=== PATIENT | female | born 1995 | race Caucasian/White ===

== ENCOUNTER 2016-04-15 15:16 | Emergency (ER) | payer OTHER, SELFPAY ==
--- NOTE | 2016-04-15 16:29 | EDDOCDS ---
Physician Documentation [facility] Name: Ofelia Roberts Age: 21 yrs Sex: Female : 1995 Arrival Date: 04/15/2016 Time: 15:16 Bed 1 Private MD: No Pcp Disposition: 04/15 16:00 Critical Care: Critical care not applicable. pc Disposition: 04/15/16 16:01 Discharged to Home/Self Care. Impression: Poisoning by heroin, accidental (unintentional), Opioid abuse. - Condition is Stable. - Discharge Instructions: Narcotic Overdose, Opioid Use Disorder. - Medication Reconciliation, Local Pharmacy Hours form. - Follow up: Addiction Services; When: Call to arrange an appointment; Reason: To establish care. - Problem is new. - Symptoms are resolved. HPI: 15:38 This 21 yrs old Female presents to ER via Ambulance with complaints of pc Overdose. 15:38 The patient presents to the emergency department with a history of substance abuse. 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 She was given Narcan IN and IV with complete reversal and she presents awake and alert. She denies any SI or coingestion. [facility] are in attendance. She denies any complaints currently and is agreeable to speak with PFS staff. The patient has experienced similar episodes in the past, multiple times. Historical: - Allergies: No known drug Allergies; - Home Meds: 1. none - PMHx: Substance Abuse; Bipolar disorder; - PSHx: none; - The history from nurses notes was reviewed: and I agree with what is documented. - Social history: Smoking status: Patient states was never smoker of tobacco. No barriers to communication noted, The patient speaks fluent Occitan, Speaks appropriately for age. - : The pt / caregiver states he / she is not on anticoagulants. Home medication list is obtained from the patient. - Hospitalizations: : No recent hospitalization is reported. - Exposure Risk Screening:: None identified. - Immunization history:: All immunizations up-to-date. - Family history: Not pertinent. - Social history:: the patient smokes cigarettes the patient drinks alcohol, the patient uses illicit drugs, including heroin, opiates. ROS: 15:38 All systems are negative except as listed. The psychiatric and neurological components pc are also addressed in the HPI. Exam: 15:38 General Appearance: alert, no acute distress. pc 15:38 ENT: ear, nose and throat normal, pharynx normal. 15:38 Eyes: pupils equal, round and reactive to light, extraocular motions intact. 15:38 Neck: The exam reveals no acute abnormalities. ROM is normal and painless. No nuchal rigidity is noted.. 15:38 Respiratory: breathing is even and unlabored, breath sounds are normal. 15:38 Cardiovascular: regular pulse rate, regular heart rhythm, normal heart sounds, equal and full pulses bilaterally. 15:38 Abdomen: soft, non-tender, no organomegaly, normal bowel sounds. 15:38 Skin: skin color is normal, warm, dry. 15:38 Extremities: track hinojosa on forearms. 15:38 Neuro: alert, oriented to person, place and time, cranial nerves normal as tested, no motor deficits, no sensory deficits. 15:38 Psych: mood is normal. Vital Signs: 15:30 BP 128 / 76 (auto/); jo3 15:30 Pulse 87 MON; Pulse Ox 96% ; jo3 15:31 BP 127 / 79; Pulse 88; Resp 16; Temp 97.1(O); Pulse Ox 96% on R/A; Weight 72.26 kg / dem1 159.31 lbs (M); Height 5 ft. 6 in. (167.64 cm) (R); Pain 4/10; 15:45 BP 128 / 69 (auto/); jo3 15:45 Pulse 84 MON; Pulse Ox 96% ; jo3 16:00 BP 114 / 65 (auto/); jo3 16:00 Pulse 66 MON; Resp 16; Temp 98.1(O); Pulse Ox 97% ; jo3 15:31 Body Mass Index 25.71 (72.26 kg, 167.64 cm) dem1 MDM: 15:38 Differential diagnosis: Substance Abuse heroin poisoning with reversal. Plan: observe, pc PFS eval. 15:53 PSA Outpatient Referrals was scanned into [employer] and attached to record. jfb 15:55 Financial registration complete. ks16 15:59 [facility] Payment Agreement was scanned into [employer] and attached to record. ks16 16:00 The patient has been medically cleared for psychiatric evaluation, admission and/or pc transfer. [employer] Safe Act reporting: Reporting to the [place] Safe Act was not completed because the patient did not display any suicidal or homicidal ideation and was not considered a risk to self or others. Data reviewed: old medical records, vital signs, nurses notes. Test interpretation: none. The patient has been re-examined and re-evaluated. The clinical presentation did not require any ED treatment or interventions. 16:00 Other consultation: The ED printed circuit board reworker was notified and will evaluate the patient. pc 16:00 Disposition: The historical points, examination findings, and any diagnostic results pc supporting the provided diagnosis, were discussed with the patient or legal guardian. The need for outpatient follow up with the provider listed on their discharge instructions was discussed. They were encouraged to return to [facility], or the nearest ED, if symptoms worsen/persist, or for any other questions/concerns. Signatures: Pedro Buckner MD MD pc Helmerci, Jennifer, RN RN Brie Solorzano PSA PSA jfb Sorenson, Kimberly, Reg Reg ks16 The chart was reviewed and I authenticate all verbal orders and agree with the evaluation and treatment provided.Corrections: (The following items were deleted from the chart) 16:00 16:00 Disposition: After a detailed explanation of all findings and the diagnosis, and pc the lack of medical necessity for an admission to hospital, the request for admission was again made. A social service director will arrange a assisted admission. pc Attachments: 15:59 [facility] Payment Agreement ks16 MTDD
--- NOTE | 2016-04-15 16:29 | EDDOCDS ---
Nurse's Notes [facility] Name: Ofelia Roberts Age: 21 yrs Sex: Female : 1995 Arrival Date: 04/15/2016 Time: 15:16 Bed 1 Private MD: No Pcp Diagnosis: Poisoning by heroin, accidental (unintentional);Opioid abuse Presentation: 04/15 15:25 Presenting complaint: EMS states: [facility] responded to call for unresponsive pt. Pt jo3 was found unresponsive and apneic with a pulse. 2mg Narcan administered IN and 2mg administered additionally by EMS after IV established. Pt now awake and alert. Adult Sepsis Screening: The patient does not have new or worsening altered mentation. Patient's respiratory rate is less than 22. Systolic blood pressure is greater than 100. Patient has a qSOFA score of 0- Negative Sepsis Screen. Suicide/Homicide risk assessment- The patient reports that he/she has a recent or current history of substance abuse. Status: Patient is not a funeral service licensee or dependent. Transition of care: patient was not received from another setting of care. 15:25 Acuity: ZULMA Level 3 jo3 15:25 Method Of Arrival: Ambulance jo3 Triage Assessment: 15:27 General: Appears in no apparent distress, Behavior is appropriate for age, cooperative, jo3 drowsy. Pain: Location: [facility] Pain currently is 3 out of 10 on a pain scale. HIV screening NA for this visit Offered previously. The patient is triaged at the bedside. See Assessment in Nurses Notes section of ED record. Neurological: Level of Consciousness is awake, alert. Cardiovascular: Rhythm is sinus rhythm No ectopy. Chest pain is denied. Respiratory: No deficits noted. Airway is patent Respiratory effort is even, unlabored. Derm: Skin Skin is clammy, Skin is pink, Skin temperature is cool. Historical: - Allergies: No known drug Allergies; - Home Meds: 1. none - PMHx: Substance Abuse; Bipolar disorder; - PSHx: none; - The history from nurses notes was reviewed: and I agree with what is documented. - Social history: Smoking status: Patient states was never smoker of tobacco. No barriers to communication noted, The patient speaks fluent Macedonian, Speaks appropriately for age. - : The pt / caregiver states he / she is not on anticoagulants. Home medication list is obtained from the patient. - Hospitalizations: : No recent hospitalization is reported. - Exposure Risk Screening:: None identified. - Immunization history:: All immunizations up-to-date. - Family history: Not pertinent. - Social history:: the patient smokes cigarettes the patient drinks alcohol, the patient uses illicit drugs, including heroin, opiates. Screenin:00 Screening information is obtained from the patient. Fall risk: No risks identified. jo3 Assistance ADL's: requires no assistance with activities of daily living. Abuse/DV Screen: The patient / caregiver reports he/she is: not in a situation that causes fear, pain or injury. Nutritional screening: No deficits noted. Advance Directives: There is no active DNR order. home support is adequate. Assessment: 15:35 Reassessment: see triage assessment . jo3 16:24 General: Appears in no apparent distress, comfortable, Behavior is appropriate for age, jo3 cooperative. Neurological: No deficits noted. Level of Consciousness is awake, alert, Oriented to person, place, time. Cardiovascular: Rhythm is sinus rhythm No ectopy. Respiratory: Airway is patent Respiratory effort is even, unlabored. Derm: Skin is pink, warm & dry. Social Work Consult: 15:55 Social Work Note: PT states she has memory up to overdosing and then the next memory jfb was being here in the ED. PT denies SI/HI or hallucinations. PT states that last summer she was in treatment at [facility] Addictions and then was sent to [facility] rehab. She was able to stay clean until about a week ago when she started "shooting heroin again". PT is requesting to go home and accepted referral information for outpatient care. Vital Signs: 15:30 BP 128 / 76 (auto/); jo3 15:30 Pulse 87 MON; Pulse Ox 96% ; jo3 15:31 BP 127 / 79; Pulse 88; Resp 16; Temp 97.1(O); Pulse Ox 96% on R/A; Weight 72.26 kg (M); dem1 Height 5 ft. 6 in. (167.64 cm) (R); Pain 4/10; 15:45 BP 128 / 69 (auto/); jo3 15:45 Pulse 84 MON; Pulse Ox 96% ; jo3 16:00 BP 114 / 65 (auto/); jo3 16:00 Pulse 66 MON; Resp 16; Temp 98.1(O); Pulse Ox 97% ; jo3 15:31 Body Mass Index 25.71 (72.26 kg, 167.64 cm) dem1 Vitals: 15:31 Log In Time N/A - ambulance arrival. dem1 ED Course: 15:17 Patient visited by Dot Au PCA. rs6 15:17 No Pcp is Private Physician. rs6 15:17 Patient moved to Waiting rs6 15:18 Patient moved to 1 rs6 15:21 Pedro Buckner MD is Attending Physician. pc 15:26 Triage Initiated jo3 15:31 Patient visited by Hina Jose,MANDO. jo3 15:31 Patient visited by Mikki Cruz. dem1 15:35 Maintain field IV. Dressing intact. Good blood return noted. Site clean & dry. Gauge & jo3 site: 18g in LAC. 15:38 Patient visited by Pedro Buckner MD. pc 15:53 PSA Outpatient Referrals was scanned into [employer] and attached to record. jfb 15:59 [facility] Payment Agreement was scanned into [employer] and attached to record. ks16 16:00 The patient / caregiver is instructed regarding the plan of care and ED course. jo3 16:01 Addiction Services is Referral Physician. pc 16:26 Discontinued IV lock intact, bleeding controlled, pressure dressing applied, No jo3 redness/swelling at site. No procedures done that require assistance. Order Results: There are currently no results for this order. Outcome: 16:01 Discharge ordered by Provider. pc 16:27 Discharge Assessment: Patient awake, alert and oriented x 3. No cognitive and/or jo3 functional deficits noted. Patient verbalized understanding of disposition instructions. patient administered narcotics - no. The following High Risk Discharge criteria are identified: Yes, Substance abuse. PFS involved in DC. Condition: stable Condition: improved. Discharge instructions given to patient, Instructed on discharge instructions, follow up and referral plans. Demonstrated understanding of instructions, Pt was receptive of discharge instructions/ teaching. No special radiology studies were completed. Property sent home with patient. 16:28 Patient left the ED. jo3 Signatures: Pedro Buckner MD MD Hina Jose,RN RN jo3 Brie Yepez, PSA PSA jfb Mikki Cruz dem1 Dot Au PCA INDUSTRIAL EDUCATION TEACHER rs6 Marisol, Mignon, Reg Reg ks16 MTDD
--- NOTE | 2016-04-17 17:28 | EDDOCDS ---
Physician Documentation [facility] Name: Ofelia Roberts Age: 21 yrs Sex: Female : 1995 Arrival Date: 04/15/2016 Time: 15:16 Bed 1 Private MD: No Pcp Disposition: 04/15 16:00 Critical Care: Critical care not applicable. pc Disposition: 04/15/16 16:01 Discharged to Home/Self Care. Impression: Poisoning by heroin, accidental (unintentional), Opioid abuse. - Condition is Stable. - Discharge Instructions: Narcotic Overdose, Opioid Use Disorder. - Medication Reconciliation, Local Pharmacy Hours form. - Follow up: Addiction Services; When: Call to arrange an appointment; Reason: To establish care. - Problem is new. - Symptoms are resolved. HPI: 15:38 This 21 yrs old Female presents to ER via Ambulance with complaints of pc Overdose. 15:38 The patient presents to the emergency department with a history of substance abuse. 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 She was given Narcan IN and IV with complete reversal and she presents awake and alert. She denies any SI or coingestion. [facility]PD are in attendance. She denies any complaints currently and is agreeable to speak with PFS staff. The patient has experienced similar episodes in the past, multiple times. Historical: - Allergies: No known drug Allergies; - Home Meds: 1. none - PMHx: Substance Abuse; Bipolar disorder; - PSHx: none; - The history from nurses notes was reviewed: and I agree with what is documented. - Social history: Smoking status: Patient states was never smoker of tobacco. No barriers to communication noted, The patient speaks fluent Occitan, Speaks appropriately for age. - : The pt / caregiver states he / she is not on anticoagulants. Home medication list is obtained from the patient. - Hospitalizations: : No recent hospitalization is reported. - Exposure Risk Screening:: None identified. - Immunization history:: All immunizations up-to-date. - Family history: Not pertinent. - Social history:: the patient smokes cigarettes the patient drinks alcohol, the patient uses illicit drugs, including heroin, opiates. ROS: 15:38 All systems are negative except as listed. The psychiatric and neurological components pc are also addressed in the HPI. Exam: 15:38 General Appearance: alert, no acute distress. pc 15:38 ENT: ear, nose and throat normal, pharynx normal. 15:38 Eyes: pupils equal, round and reactive to light, extraocular motions intact. 15:38 Neck: The exam reveals no acute abnormalities. ROM is normal and painless. No nuchal rigidity is noted.. 15:38 Respiratory: breathing is even and unlabored, breath sounds are normal. 15:38 Cardiovascular: regular pulse rate, regular heart rhythm, normal heart sounds, equal and full pulses bilaterally. 15:38 Abdomen: soft, non-tender, no organomegaly, normal bowel sounds. 15:38 Skin: skin color is normal, warm, dry. 15:38 Extremities: track hinojosa on forearms. 15:38 Neuro: alert, oriented to person, place and time, cranial nerves normal as tested, no motor deficits, no sensory deficits. 15:38 Psych: mood is normal. Vital Signs: 15:30 BP 128 / 76 (auto/); jo3 15:30 Pulse 87 MON; Pulse Ox 96% ; jo3 15:31 BP 127 / 79; Pulse 88; Resp 16; Temp 97.1(O); Pulse Ox 96% on R/A; Weight 72.26 kg / dem1 159.31 lbs (M); Height 5 ft. 6 in. (167.64 cm) (R); Pain 4/10; 15:45 BP 128 / 69 (auto/); jo3 15:45 Pulse 84 MON; Pulse Ox 96% ; jo3 16:00 BP 114 / 65 (auto/); jo3 16:00 Pulse 66 MON; Resp 16; Temp 98.1(O); Pulse Ox 97% ; jo3 15:31 Body Mass Index 25.71 (72.26 kg, 167.64 cm) dem1 MDM: 15:38 Differential diagnosis: Substance Abuse heroin poisoning with reversal. Plan: observe, pc PFS eval. 15:53 PSA Outpatient Referrals was scanned into [employer] and attached to record. jfb 15:55 Financial registration complete. ks16 15:59 [facility] Payment Agreement was scanned into [employer] and attached to record. ks16 16:00 The patient has been medically cleared for psychiatric evaluation, admission and/or pc transfer. [employer] Safe Act reporting: Reporting to the [place] Safe Act was not completed because the patient did not display any suicidal or homicidal ideation and was not considered a risk to self or others. Data reviewed: old medical records, vital signs, nurses notes. Test interpretation: none. The patient has been re-examined and re-evaluated. The clinical presentation did not require any ED treatment or interventions. 16:00 Other consultation: The ED advertising layout worker was notified and will evaluate the patient. pc 16:00 Disposition: The historical points, examination findings, and any diagnostic results pc supporting the provided diagnosis, were discussed with the patient or legal guardian. The need for outpatient follow up with the provider listed on their discharge instructions was discussed. They were encouraged to return to [facility], or the nearest ED, if symptoms worsen/persist, or for any other questions/concerns. Signatures: Pedro Buckner MD MD pc Helmerci, Jennifer, RN RN Brie Solorzano PSA PSA jfb Sorenson, Kimberly, Reg Reg ks16 The chart was reviewed and I authenticate all verbal orders and agree with the evaluation and treatment provided.Corrections: (The following items were deleted from the chart) 16:00 16:00 Disposition: After a detailed explanation of all findings and the diagnosis, and pc the lack of medical necessity for an admission to hospital, the request for admission was again made. A perinatal social worker will arrange a fdc admission. pc Attachments: 15:59 [facility] Payment Agreement ks16 Chart Complete MTDD
--- NOTE | 2016-04-17 17:28 | EDDOCDS ---
Physician Documentation [facility] Name: Ofelia Roberts Age: 21 yrs Sex: Female : 1995 Arrival Date: 04/15/2016 Time: 15:16 Bed 1 Private MD: No Pcp Disposition: 04/15 16:00 Critical Care: Critical care not applicable. pc Disposition: 04/15/16 16:01 Discharged to Home/Self Care. Impression: Poisoning by heroin, accidental (unintentional), Opioid abuse. - Condition is Stable. - Discharge Instructions: Narcotic Overdose, Opioid Use Disorder. - Medication Reconciliation, Local Pharmacy Hours form. - Follow up: Addiction Services; When: Call to arrange an appointment; Reason: To establish care. - Problem is new. - Symptoms are resolved. HPI: 15:38 This 21 yrs old Female presents to ER via Ambulance with complaints of pc Overdose. 15:38 The patient presents to the emergency department with a history of substance abuse. 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 She was given Narcan IN and IV with complete reversal and she presents awake and alert. She denies any SI or coingestion. [facility]PD are in attendance. She denies any complaints currently and is agreeable to speak with PFS staff. The patient has experienced similar episodes in the past, multiple times. Historical: - Allergies: No known drug Allergies; - Home Meds: 1. none - PMHx: Substance Abuse; Bipolar disorder; - PSHx: none; - The history from nurses notes was reviewed: and I agree with what is documented. - Social history: Smoking status: Patient states was never smoker of tobacco. No barriers to communication noted, The patient speaks fluent Swedish, Speaks appropriately for age. - : The pt / caregiver states he / she is not on anticoagulants. Home medication list is obtained from the patient. - Hospitalizations: : No recent hospitalization is reported. - Exposure Risk Screening:: None identified. - Immunization history:: All immunizations up-to-date. - Family history: Not pertinent. - Social history:: the patient smokes cigarettes the patient drinks alcohol, the patient uses illicit drugs, including heroin, opiates. ROS: 15:38 All systems are negative except as listed. The psychiatric and neurological components pc are also addressed in the HPI. Exam: 15:38 General Appearance: alert, no acute distress. pc 15:38 ENT: ear, nose and throat normal, pharynx normal. 15:38 Eyes: pupils equal, round and reactive to light, extraocular motions intact. 15:38 Neck: The exam reveals no acute abnormalities. ROM is normal and painless. No nuchal rigidity is noted.. 15:38 Respiratory: breathing is even and unlabored, breath sounds are normal. 15:38 Cardiovascular: regular pulse rate, regular heart rhythm, normal heart sounds, equal and full pulses bilaterally. 15:38 Abdomen: soft, non-tender, no organomegaly, normal bowel sounds. 15:38 Skin: skin color is normal, warm, dry. 15:38 Extremities: track hinojosa on forearms. 15:38 Neuro: alert, oriented to person, place and time, cranial nerves normal as tested, no motor deficits, no sensory deficits. 15:38 Psych: mood is normal. Vital Signs: 15:30 BP 128 / 76 (auto/); jo3 15:30 Pulse 87 MON; Pulse Ox 96% ; jo3 15:31 BP 127 / 79; Pulse 88; Resp 16; Temp 97.1(O); Pulse Ox 96% on R/A; Weight 72.26 kg / dem1 159.31 lbs (M); Height 5 ft. 6 in. (167.64 cm) (R); Pain 4/10; 15:45 BP 128 / 69 (auto/); jo3 15:45 Pulse 84 MON; Pulse Ox 96% ; jo3 16:00 BP 114 / 65 (auto/); jo3 16:00 Pulse 66 MON; Resp 16; Temp 98.1(O); Pulse Ox 97% ; jo3 15:31 Body Mass Index 25.71 (72.26 kg, 167.64 cm) dem1 MDM: 15:38 Differential diagnosis: Substance Abuse heroin poisoning with reversal. Plan: observe, pc PFS eval. 15:53 PSA Outpatient Referrals was scanned into [employer] and attached to record. jfb 15:55 Financial registration complete. ks16 15:59 [facility] Payment Agreement was scanned into [employer] and attached to record. ks16 16:00 The patient has been medically cleared for psychiatric evaluation, admission and/or pc transfer. [employer] Safe Act reporting: Reporting to the [place] Safe Act was not completed because the patient did not display any suicidal or homicidal ideation and was not considered a risk to self or others. Data reviewed: old medical records, vital signs, nurses notes. Test interpretation: none. The patient has been re-examined and re-evaluated. The clinical presentation did not require any ED treatment or interventions. 16:00 Other consultation: The ED groundskeeping maintenance worker was notified and will evaluate the patient. pc 16:00 Disposition: The historical points, examination findings, and any diagnostic results pc supporting the provided diagnosis, were discussed with the patient or legal guardian. The need for outpatient follow up with the provider listed on their discharge instructions was discussed. They were encouraged to return to [facility], or the nearest ED, if symptoms worsen/persist, or for any other questions/concerns. Signatures: Pedro Buckner MD MD pc Helmerci, Jennifer, RN RN Brie Solorzano PSA PSA jfb Sorenson, Kimberly, Reg Reg ks16 The chart was reviewed and I authenticate all verbal orders and agree with the evaluation and treatment provided.Corrections: (The following items were deleted from the chart) 16:00 16:00 Disposition: After a detailed explanation of all findings and the diagnosis, and pc the lack of medical necessity for an admission to hospital, the request for admission was again made. A social science analyst will arrange a residential admission. pc Attachments: 15:59 [facility] Payment Agreement [email or web address] Chart Complete MTDD
--- NOTE | 2016-04-17 17:28 | EDDOCDS ---
Nurse's Notes [facility] Name: Ofelia Roberts Age: 21 yrs Sex: Female : 1995 Arrival Date: 04/15/2016 Time: 15:16 Bed 1 Private MD: No Pcp Diagnosis: Poisoning by heroin, accidental (unintentional);Opioid abuse Presentation: 04/15 15:25 Presenting complaint: EMS states: [facility] responded to call for unresponsive pt. Pt jo3 was found unresponsive and apneic with a pulse. 2mg Narcan administered IN and 2mg administered additionally by EMS after IV established. Pt now awake and alert. Adult Sepsis Screening: The patient does not have new or worsening altered mentation. Patient's respiratory rate is less than 22. Systolic blood pressure is greater than 100. Patient has a qSOFA score of 0- Negative Sepsis Screen. Suicide/Homicide risk assessment- The patient reports that he/she has a recent or current history of substance abuse. Status: Patient is not a financial services internship or dependent. Transition of care: patient was not received from another setting of care. 15:25 Acuity: ZULMA Level 3 jo3 15:25 Method Of Arrival: Ambulance jo3 Triage Assessment: 15:27 General: Appears in no apparent distress, Behavior is appropriate for age, cooperative, jo3 drowsy. Pain: Location: [facility] Pain currently is 3 out of 10 on a pain scale. HIV screening NA for this visit Offered previously. The patient is triaged at the bedside. See Assessment in Nurses Notes section of ED record. Neurological: Level of Consciousness is awake, alert. Cardiovascular: Rhythm is sinus rhythm No ectopy. Chest pain is denied. Respiratory: No deficits noted. Airway is patent Respiratory effort is even, unlabored. Derm: Skin Skin is clammy, Skin is pink, Skin temperature is cool. Historical: - Allergies: No known drug Allergies; - Home Meds: 1. none - PMHx: Substance Abuse; Bipolar disorder; - PSHx: none; - The history from nurses notes was reviewed: and I agree with what is documented. - Social history: Smoking status: Patient states was never smoker of tobacco. No barriers to communication noted, The patient speaks fluent Hungarian, Speaks appropriately for age. - : The pt / caregiver states he / she is not on anticoagulants. Home medication list is obtained from the patient. - Hospitalizations: : No recent hospitalization is reported. - Exposure Risk Screening:: None identified. - Immunization history:: All immunizations up-to-date. - Family history: Not pertinent. - Social history:: the patient smokes cigarettes the patient drinks alcohol, the patient uses illicit drugs, including heroin, opiates. Screenin:00 Screening information is obtained from the patient. Fall risk: No risks identified. jo3 Assistance ADL's: requires no assistance with activities of daily living. Abuse/DV Screen: The patient / caregiver reports he/she is: not in a situation that causes fear, pain or injury. Nutritional screening: No deficits noted. Advance Directives: There is no active DNR order. home support is adequate. Assessment: 15:35 Reassessment: see triage assessment . jo3 16:24 General: Appears in no apparent distress, comfortable, Behavior is appropriate for age, jo3 cooperative. Neurological: No deficits noted. Level of Consciousness is awake, alert, Oriented to person, place, time. Cardiovascular: Rhythm is sinus rhythm No ectopy. Respiratory: Airway is patent Respiratory effort is even, unlabored. Derm: Skin is pink, warm & dry. Social Work Consult: 15:55 Social Work Note: PT states she has memory up to overdosing and then the next memory jfb was being here in the ED. PT denies SI/HI or hallucinations. PT states that last summer she was in treatment at [facility] Addictions and then was sent to [facility] rehab. She was able to stay clean until about a week ago when she started "shooting heroin again". PT is requesting to go home and accepted referral information for outpatient care. Vital Signs: 15:30 BP 128 / 76 (auto/); jo3 15:30 Pulse 87 MON; Pulse Ox 96% ; jo3 15:31 BP 127 / 79; Pulse 88; Resp 16; Temp 97.1(O); Pulse Ox 96% on R/A; Weight 72.26 kg (M); dem1 Height 5 ft. 6 in. (167.64 cm) (R); Pain 4/10; 15:45 BP 128 / 69 (auto/); jo3 15:45 Pulse 84 MON; Pulse Ox 96% ; jo3 16:00 BP 114 / 65 (auto/); jo3 16:00 Pulse 66 MON; Resp 16; Temp 98.1(O); Pulse Ox 97% ; jo3 15:31 Body Mass Index 25.71 (72.26 kg, 167.64 cm) dem1 Vitals: 15:31 Log In Time N/A - ambulance arrival. dem1 ED Course: 15:17 Patient visited by Dot Au PCA. rs6 15:17 No Pcp is Private Physician. rs6 15:17 Patient moved to Waiting rs6 15:18 Patient moved to 1 rs6 15:21 Pedro Buckner MD is Attending Physician. pc 15:26 Triage Initiated jo3 15:31 Patient visited by Hina Jose,MANDO. jo3 15:31 Patient visited by Mikki Cruz. dem1 15:35 Maintain field IV. Dressing intact. Good blood return noted. Site clean & dry. Gauge & jo3 site: 18g in LAC. 15:38 Patient visited by Pedro Buckner MD. pc 15:53 PSA Outpatient Referrals was scanned into [employer] and attached to record. jfb 15:59 [facility] Payment Agreement was scanned into [employer] and attached to record. ks16 16:00 The patient / caregiver is instructed regarding the plan of care and ED course. jo3 16:01 Addiction Services is Referral Physician. pc 16:26 Discontinued IV lock intact, bleeding controlled, pressure dressing applied, No jo3 redness/swelling at site. No procedures done that require assistance. Order Results: There are currently no results for this order. Outcome: 16:01 Discharge ordered by Provider. pc 16:27 Discharge Assessment: Patient awake, alert and oriented x 3. No cognitive and/or jo3 functional deficits noted. Patient verbalized understanding of disposition instructions. patient administered narcotics - no. The following High Risk Discharge criteria are identified: Yes, Substance abuse. PFS involved in DC. Condition: stable Condition: improved. Discharge instructions given to patient, Instructed on discharge instructions, follow up and referral plans. Demonstrated understanding of instructions, Pt was receptive of discharge instructions/ teaching. No special radiology studies were completed. Property sent home with patient. 16:28 Patient left the ED. jo3 Signatures: Pedro Buckner MD MD Hina Jose,RN RN jo3 Brie Yepez, PSA PSA jfb Mikki Cruz dem1 Dot Au PCA ACCOUNT SUPPORT MANAGER rs6 Marisol, Mignon, Reg Reg ks16 Chart Complete MTDD
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
--- NOTE | 2016-04-18 22:04 | EDDOCDS ---
Physician Documentation [facility] Name: Ofelia Roberts Age: 21 yrs Sex: Female : 1995 Arrival Date: 04/15/2016 Time: 15:16 Bed 1 Private MD: No Pcp Disposition: 04/15 16:00 Critical Care: Critical care not applicable. pc Disposition: 04/15/16 16:01 Discharged to Home/Self Care. Impression: Poisoning by heroin, accidental (unintentional), Opioid abuse. - Condition is Stable. - Discharge Instructions: Narcotic Overdose, Opioid Use Disorder. - Medication Reconciliation, Local Pharmacy Hours form. - Follow up: Addiction Services; When: Call to arrange an appointment; Reason: To establish care. - Problem is new. - Symptoms are resolved. HPI: 15:38 This 21 yrs old Female presents to ER via Ambulance with complaints of pc Overdose. 15:38 The patient presents to the emergency department with a history of substance abuse. 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 She was given Narcan IN and IV with complete reversal and she presents awake and alert. She denies any SI or coingestion. [facility] are in attendance. She denies any complaints currently and is agreeable to speak with PFS staff. The patient has experienced similar episodes in the past, multiple times. Historical: - Allergies: No known drug Allergies; - Home Meds: 1. none - PMHx: Substance Abuse; Bipolar disorder; - PSHx: none; - The history from nurses notes was reviewed: and I agree with what is documented. - Social history: Smoking status: Patient states was never smoker of tobacco. No barriers to communication noted, The patient speaks fluent Kinyarwanda, Speaks appropriately for age. - : The pt / caregiver states he / she is not on anticoagulants. Home medication list is obtained from the patient. - Hospitalizations: : No recent hospitalization is reported. - Exposure Risk Screening:: None identified. - Immunization history:: All immunizations up-to-date. - Family history: Not pertinent. - Social history:: the patient smokes cigarettes the patient drinks alcohol, the patient uses illicit drugs, including heroin, opiates. ROS: 15:38 All systems are negative except as listed. The psychiatric and neurological components pc are also addressed in the HPI. Exam: 15:38 General Appearance: alert, no acute distress. pc 15:38 ENT: ear, nose and throat normal, pharynx normal. 15:38 Eyes: pupils equal, round and reactive to light, extraocular motions intact. 15:38 Neck: The exam reveals no acute abnormalities. ROM is normal and painless. No nuchal rigidity is noted.. 15:38 Respiratory: breathing is even and unlabored, breath sounds are normal. 15:38 Cardiovascular: regular pulse rate, regular heart rhythm, normal heart sounds, equal and full pulses bilaterally. 15:38 Abdomen: soft, non-tender, no organomegaly, normal bowel sounds. 15:38 Skin: skin color is normal, warm, dry. 15:38 Extremities: track hinojosa on forearms. 15:38 Neuro: alert, oriented to person, place and time, cranial nerves normal as tested, no motor deficits, no sensory deficits. 15:38 Psych: mood is normal. Vital Signs: 15:30 BP 128 / 76 (auto/); jo3 15:30 Pulse 87 MON; Pulse Ox 96% ; jo3 15:31 BP 127 / 79; Pulse 88; Resp 16; Temp 97.1(O); Pulse Ox 96% on R/A; Weight 72.26 kg / dem1 159.31 lbs (M); Height 5 ft. 6 in. (167.64 cm) (R); Pain 4/10; 15:45 BP 128 / 69 (auto/); jo3 15:45 Pulse 84 MON; Pulse Ox 96% ; jo3 16:00 BP 114 / 65 (auto/); jo3 16:00 Pulse 66 MON; Resp 16; Temp 98.1(O); Pulse Ox 97% ; jo3 15:31 Body Mass Index 25.71 (72.26 kg, 167.64 cm) dem1 MDM: 15:38 Differential diagnosis: Substance Abuse heroin poisoning with reversal. Plan: observe, pc PFS eval. 15:53 PSA Outpatient Referrals was scanned into [employer] and attached to record. jfb 15:55 Financial registration complete. [email or web address] 15:59 [facility] Payment Agreement was scanned into [employer] and attached to record. [email or web address] 16:00 The patient has been medically cleared for psychiatric evaluation, admission and/or pc transfer. [employer] Safe Act reporting: Reporting to the [place] Safe Act was not completed because the patient did not display any suicidal or homicidal ideation and was not considered a risk to self or others. Data reviewed: old medical records, vital signs, nurses notes. Test interpretation: none. The patient has been re-examined and re-evaluated. The clinical presentation did not require any ED treatment or interventions. 16:00 Other consultation: The ED sub assembly team worker was notified and will evaluate the patient. pc 16:00 Disposition: The historical points, examination findings, and any diagnostic results pc supporting the provided diagnosis, were discussed with the patient or legal guardian. The need for outpatient follow up with the provider listed on their discharge instructions was discussed. They were encouraged to return to [facility], or the nearest ED, if symptoms worsen/persist, or for any other questions/concerns. Signatures: Pedro Buckner MD MD pc Helmerci, Jennifer, RN RN Brie Solorzano PSA PSA jfb Sorenson, Kimberly, Reg Reg ks16 The chart was reviewed and I authenticate all verbal orders and agree with the evaluation and treatment provided.Corrections: (The following items were deleted from the chart) 16:00 16:00 Disposition: After a detailed explanation of all findings and the diagnosis, and pc the lack of medical necessity for an admission to hospital, the request for admission was again made. A rn social services will arrange a fdc admission. pc Attachments: 15:59 [facility] Payment Agreement [email or web address] Chart Complete MTDD
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
== END 2016-04-15 16:28 | disposition home or self-care (01) ==
LOC: M ED 15:16
DX: T40.2X1A Poisoning by other opioids, accidental (unintentional), initial encounter (principal); X58.XXXA Exposure to other specified factors, initial encounter; Y92.89 Other specified places as the place of occurrence of the external cause; Y93.89 Activity, other specified; Y99.8 Other external cause status; F19.10 Other psychoactive substance abuse, uncomplicated; F31.9 Bipolar disorder, unspecified

== ENCOUNTER 2016-08-08 18:10 | Emergency (ER) | payer MEDICAID, OTHER, SELFPAY ==
[~2016-08-08] VITALS: Ht 167.6 cm; Wt 68.0 kg
[2016-08-08 18:11] VITALS: BP 113/65
[2016-08-08] MEDS ORDERED: NAPR500T PO (18:59)
[2016-08-08] MEDS ORDERED: PENI500T GT (18:59)
[2016-08-08] MEDS ORDERED: NORCOTAB PO (18:59)
[2016-08-08] MEDS ORDERED: NORCO, ANEXSIA 5/325MG TABLET (HYDROcodone/ACETAMINOPHEN) PO ONE (19:00)
[2016-08-08] MEDS ORDERED: PENICILLIN V POTASSIUM 500 MG TAB PO ONE (19:00)
== END 2016-08-08 19:18 | disposition home or self-care (01) ==
LOC: M ED 19:00
DX: K02.9 Dental caries, unspecified (principal); R68.84 Jaw pain

== ENCOUNTER → 2017-01-06 | Outpatient (REF) | payer OTHER ==
[~2017-01-06] MED LIST: NAPR500T PO; NORCOTAB PO; PENI500T GT
[2017-01-06 15:48] LABS: CONTROL LINE UCG INT CTR LINE PRESENT
== END ==
LOC: M LAB REF 15:32
PROVIDERS: ATTEND Physician Assistant Medical
DX: O21.0 Mild hyperemesis gravidarum (principal)

== ENCOUNTER → 2017-01-10 | Outpatient (REF) | payer OTHER | LOC: M LAB REF 16:40 | PROVIDERS: ATTEND Physician Assistant | DX: N39.0 Urinary tract infection, site not specified (principal) ==

== ENCOUNTER 2017-07-22 15:13 | Emergency (ER) | payer OTHER | END 2017-07-22 17:57 | disposition home or self-care (01) | LOC: M ED 17:57 | DX: O98.411 Viral hepatitis complicating pregnancy, first trimester (principal); B19.20 Unspecified viral hepatitis C without hepatic coma; Z3A.01 Less than 8 weeks gestation of pregnancy; O99.331 Smoking (tobacco) complicating pregnancy, first trimester; F17.210 Nicotine dependence, cigarettes, uncomplicated | CPT/HCPCS: 99283 ==

== ENCOUNTER 2017-07-30 07:48 | Emergency (ER) | payer OTHER ==
[2017-07-30 08:42] LABS: BASO # 0.1 10^3/uL (0.0-0.2); BASO % 0.5 % (0.0-1.0); EOS # 0.2 10^3/uL (0.0-0.50); EOS % 1.6 % (0.0-3.0); HEMATOCRIT 42.1 % (36.0-47.0); HEMOGLOBIN 14.1 g/dl (12.0-15.5); IMMATURE GRANULOCYTE % 0.3 % (0-3.0); LYMPH # 3.3 10^3/uL (1.5-6.5); LYMPH % 25.7 % (24.0-44.0); MEAN CORPUSCULAR HEMOGLOBIN 30.1 pg (27.0-33.0); MEAN CORPUSCULAR HGB CONC 33.5 g/dl (32.0-36.5); MEAN CORPUSCULAR VOLUME 89.8 fl (80.0-96.0); MONO # 0.8 10^3/uL (0.0-0.8); MONO % 6.1 % (0.0-5.0); NEUTROPHILS # 8.3 10^3/uL (1.8-7.7); NEUTROPHILS % 65.8 % (36.0-66.0); PLATELET COUNT, AUTOMATED 335 10^3/uL (150-450); RED BLOOD COUNT 4.69 10^6/uL (4.00-5.40); RED CELL DISTRIBUTION WIDTH 12.2 % (11.5-14.5); WHITE BLOOD COUNT 12.7 10^3/uL (4.0-10.0)
[2017-07-30] MEDS: NS 1,000 ML IV (09:10)
[2017-07-30 09:22] LABS: ANION GAP 7 MEQ/L (8-16); BLOOD UREA NITROGEN 8 MG/DL (7-18); CALCIUM LEVEL 8.9 MG/DL (8.5-10.1); CARBON DIOXIDE LEVEL 26 MEQ/L (21-32); CHLORIDE LEVEL 106 MEQ/L (98-107); CREATININE FOR GFR 0.79 MG/DL (0.55-1.30); GLOMERULAR FILTRATION RATE > 60.0 (>60); GLUCOSE, FASTING 100 MG/DL (70-100); HCG, SERUM QUANTITATIVE 3623 MIU/ML; POTASSIUM SERUM 3.9 MEQ/L (3.5-5.1); SODIUM LEVEL 139 MEQ/L (136-145)
[2017-07-30 11:32] LABS: CHLAMYDIA DNA AMPLIFICATION NEGATIVE (NEGATIVE); GC DNA AMPLIFICATION NEGATIVE (NEGATIVE)
== END 2017-07-30 12:27 | disposition home or self-care (01) ==
LOC: M ED 07:48
DX: O03.9 Complete or unspecified spontaneous abortion without complication (principal); B18.2 Chronic viral hepatitis C; F17.200 Nicotine dependence, unspecified, uncomplicated
CPT/HCPCS: 76801

== ENCOUNTER → 2017-08-04 | Outpatient (REF) | payer OTHER ==
[2017-08-04 12:16] LABS: HEMOGLOBIN 13.8 g/dl (12.0-15.5); MEAN CORPUSCULAR HEMOGLOBIN 29.7 pg (27.0-33.0); MEAN CORPUSCULAR HGB CONC 32.9 g/dl (32.0-36.5); MEAN CORPUSCULAR VOLUME 90.5 fl (80.0-96.0); PLATELET COUNT, AUTOMATED 341 10^3/uL (150-450); RED BLOOD COUNT 4.64 10^6/uL (4.00-5.40); RED CELL DISTRIBUTION WIDTH 12.3 % (11.5-14.5); WHITE BLOOD COUNT 13.6 10^3/uL (4.0-10.0)
[2017-08-04 12:26] LABS: POSITIVE MORPH POS FLAG
[2017-08-04 12:27] LABS: ADD MANUAL DIFFER YES; DIFF SLIDE NUMBER 194
[2017-08-04 13:45] LABS: ALBUMIN/GLOBULIN RATIO 1.21 (1.00-1.93); ALKALINE PHOSPHATASE 65 U/L (45-117); ALT/SGPT 46 U/L (12-78); ANION GAP 7 MEQ/L (8-16); AST/SGOT 22 U/L (7-37); BILIRUBIN,TOTAL 0.3 MG/DL (0.2-1.0); BLOOD UREA NITROGEN 11 MG/DL (7-18); CALCIUM LEVEL 8.6 MG/DL (8.5-10.1); CARBON DIOXIDE LEVEL 32 MEQ/L (21-32); CHLORIDE LEVEL 102 MEQ/L (98-107); GLOMERULAR FILTRATION RATE > 60.0 (>60); GLUCOSE, FASTING 86 MG/DL (70-100); POTASSIUM SERUM 4.4 MEQ/L (3.5-5.1); SODIUM LEVEL 141 MEQ/L (136-145); TOTAL PROTEIN 7.3 GM/DL (6.4-8.2)
[2017-08-04 13:59] LABS: ATYPICAL LYMPH 5 % (0-5); BASOPHILS 1 % (0-4); EOSINOPHILS 2 % (0-5); LYMPHOCYTES 27 % (16-52); MONOCYTES 8 % (0-8); NEUTROPHILS 57 % (35-75); PLATELET ESTIMATE NORMAL (NORMAL)
[2017-08-05 12:07] LABS: HEPATITIS B SURFACE ANTIGEN NEGATIVE (NEGATIVE)
[2017-08-05 12:09] LABS: HEPATITIS B SURFACE ANTIBODY NEGATIVE (POSITIVE)
[2017-08-05 12:34] LABS: HIV 1&2 SCREEN CENTAUR NEGATIVE (NEGATIVE)
== END ==
LOC: M SFHCPLAZ 10:24
DX: B18.2 Chronic viral hepatitis C (principal)

== ENCOUNTER → 2017-11-21 | Outpatient (REF) | payer MEDICAID ==
[2017-11-21 18:35] LABS: HEMATOCRIT 37.9 % (36.0-47.0); HEMOGLOBIN 12.7 g/dl (12.0-15.5); MEAN CORPUSCULAR HEMOGLOBIN 29.3 pg (27.0-33.0); MEAN CORPUSCULAR HGB CONC 33.5 g/dl (32.0-36.5); MEAN CORPUSCULAR VOLUME 87.5 fl (80.0-96.0); PLATELET COUNT, AUTOMATED 415 10^3/uL (150-450); RED BLOOD COUNT 4.33 10^6/uL (4.00-5.40); RED CELL DISTRIBUTION WIDTH 13.3 % (11.5-14.5); WHITE BLOOD COUNT 17.3 10^3/uL (4.0-10.0)
[2017-11-21 23:38] LABS: HCG, SERUM QUANTITATIVE 62915 MIU/ML
[2017-11-23 12:49] LABS: RUBELLA IgG QUALITATIVE IMMUNE (IMMUNE)
[2017-11-23 12:50] LABS: HBsAg Prenatal NEGATIVE (NEGATIVE)
[2017-11-23 13:18] LABS: HIV 1&2 SCREEN CENTAUR NEGATIVE (NEGATIVE)
[2017-11-23 13:27] LABS: HEPATITIS C VIRUS ABY INDEX > 11.0 INDEX (<0.8)
== END ==
LOC: M LAB REF 17:09
DX: O36.80X0 Pregnancy with inconclusive fetal viability, not applicable or unspecified (principal)

== ENCOUNTER 2017-12-07 09:09 | Emergency (ER) | payer OTHER, MEDICAID ==
[2017-12-07] MEDS: NS 1,000 ML IV (10:08)
[2017-12-07] MEDS: ONDANSETRON 4MG/2ML VIAL (J2405) IV (10:08)
[2017-12-07 10:17] LABS: AMORPHOUS SEDIMENT RFX SMALL (NEGATIVE); KETONE, URINE AUTO RFX TRACE mg/dL (NEGATIVE); LEUKOCYTE ESTERASE UR AUTO RFX NEGATIVE (NEGATIVE); MUCUS, URINE RFX LARGE (NEGATIVE); NITRITE, URINE AUTO RFX NEGATIVE (NEGATIVE); RBC, URINE AUTO RFX 0 /HPF (0-3); SQUAM EPITHELIAL CELL UR AURFX 10 /HPF (0-6); WBC, URINE AUTO RFX 0 /HPF (0-3)
[2017-12-07 11:01] LABS: ALBUMIN 3.5 GM/DL (3.2-5.2); ALBUMIN/GLOBULIN RATIO 0.95 (1.00-1.93); ALKALINE PHOSPHATASE 54 U/L (45-117); ALT/SGPT 19 U/L (12-78); ANION GAP 10 MEQ/L (8-16); AST/SGOT 13 U/L (7-37); BILIRUBIN,DIRECT < 0.1 MG/DL (0.0-0.2); BILIRUBIN,TOTAL 0.2 MG/DL (0.2-1.0); BLOOD UREA NITROGEN 8 MG/DL (7-18); CALCIUM LEVEL 9.4 MG/DL (8.5-10.1); CARBON DIOXIDE LEVEL 25 MEQ/L (21-32); CHLORIDE LEVEL 105 MEQ/L (98-107); CREATININE FOR GFR 0.53 MG/DL (0.55-1.30); GLOMERULAR FILTRATION RATE > 60.0 (>60); GLUCOSE, FASTING 135 MG/DL (70-100); POTASSIUM SERUM 3.9 MEQ/L (3.5-5.1); SODIUM LEVEL 140 MEQ/L (136-145); TOTAL PROTEIN 7.2 GM/DL (6.4-8.2)
== END 2017-12-07 13:05 | disposition home or self-care (01) ==
LOC: M ED 09:09
DX: O21.9 Vomiting of pregnancy, unspecified (principal)
CPT/HCPCS: J2405

== ENCOUNTER → 2017-12-26 | Outpatient (REF) | payer OTHER | LOC: M LAB REF 17:10 | DX: Z13.79 Encounter for other screening for genetic and chromosomal anomalies (principal); Z34.82 Encounter for supervision of other normal pregnancy, second trimester; B18.2 Chronic viral hepatitis C ==

== ENCOUNTER → 2018-04-06 | Outpatient (CLI) | payer OTHER ==
[~2018-04-06] MED LIST changes: +NAPR-50 PO; -NAPR500T PO; +ZOFR4TAB14 PO
[2018-04-06 16:30] LABS: HEMATOCRIT 34.3 % (36.0-47.0); HEMOGLOBIN 11.3 g/dl (12.0-15.5); MEAN CORPUSCULAR HEMOGLOBIN 28.3 pg (27.0-33.0); MEAN CORPUSCULAR HGB CONC 32.9 g/dl (32.0-36.5); MEAN CORPUSCULAR VOLUME 85.8 fl (80.0-96.0); PLATELET COUNT, AUTOMATED 376 10^3/uL (150-450); WHITE BLOOD COUNT 14.4 10^3/uL (4.0-10.0)
== END ==
LOC: M LAB 14:47
PROVIDERS: ATTEND Obstetrics & Gynecology
DX: Z36.89 Encounter for other specified antenatal screening (principal)

== ENCOUNTER 2018-06-16 06:12 | Inpatient (IN) | payer OTHER ==
[2018-06-16] VITALS (20 sets, daily range): BP systolic 101–169; BP diastolic 55–95
[~2018-06-16] VITALS: Ht 170.2 cm; Wt 73.5 kg
[~2018-06-16 06:12] MED LIST changes: +HYDR-3715 PO; -NAPR-50 PO; +NAPR-837 PO; -NORCOTAB PO
[2018-06-16] MEDS ORDERED: LACTATED RINGER'S 1000 ML IV STA (06:56)
[2018-06-16] MEDS ORDERED: LR 1,000 ML IV SCH ×2 (06:56→12:14)
[2018-06-16 07:46] LABS: HEMATOCRIT 34.6 % (36.0-47.0); HEMOGLOBIN 11.2 g/dl (12.0-15.5); MEAN CORPUSCULAR HEMOGLOBIN 26.4 pg (27.0-33.0); MEAN CORPUSCULAR HGB CONC 32.4 g/dl (32.0-36.5); MEAN CORPUSCULAR VOLUME 81.6 fl (80.0-96.0); PLATELET COUNT, AUTOMATED 360 10^3/uL (150-450); RED BLOOD COUNT 4.24 10^6/uL (4.00-5.40); WHITE BLOOD COUNT 16.6 10^3/uL (4.0-10.0)
[2018-06-16] MEDS ORDERED: OXYTOCIN DRIP 30 UNITS in APPROPRIATE DILUENT 1 EA IV SCH (08:15)
[2018-06-16] MEDS ORDERED: FENTANYL 2MCG/ML ROPIVACAINE 0.2% IN 0.9% NACL 100ML IVBAG As Ordered ONE (08:47)
[2018-06-16] MEDS ORDERED: FENTANYL/ROPIVACAINE/NACL BAG 100 ML EPIDURAL SCH (10:00)
[2018-06-16] MEDS ORDERED: REFRIGERATOR IV KEYS XX PRN (10:00)
[2018-06-16] MEDS ORDERED: EPIDURAL COMMENT XX SCH (10:00)
[2018-06-16] MEDS ORDERED: diphenhydrAMINE INJ 50MG/ML VIAL (J1200) IV PRN (10:00)
[2018-06-16] MEDS ORDERED: ONDANSETRON 4MG/2ML VIAL (J2405) IV PRN (10:00)
[2018-06-16] MEDS ORDERED: NALOXONE INJ 0.4 MG/1 ML VIAL (J2310) IV PRN (10:00)
[2018-06-16] MEDS ORDERED: EPIDURAL/PCA KEYS XX PRN (10:00)
[2018-06-16] MEDS ORDERED: LACTATED RINGER'S 1000 ML IV PRN (10:00)
[2018-06-16] MEDS ORDERED: ePHEDrine SULFATE 25 MG/5 ML(5MG/ML) SYRINGE IV PRN (10:00)
[2018-06-16] MEDS ORDERED: BICITRA 30ML SOLN UDC As Ordered ONE (11:37)
[2018-06-16] MEDS ORDERED: BICITRA 30ML SOLN UDC PO ONE (12:00)
[2018-06-16 12:04] LABS: CORD GAS ABE V -1.7; CORD GAS HCO3 V 25.1 MEQ/L; CORD GAS O2 SAT V 66.9 %; CORD GAS PCO2 V 49.6 mmHg; CORD GAS PH V 7.322 UNITS; CORD GAS PO2 V 29.9 mmHg; CORD GAS SBC V 22.2 MEQ/L; CORD GAS TCO2 V 26.6 MEQ/L
[2018-06-16 12:05] LABS: CORD GAS ABE A -2.6; CORD GAS HCO3 A 26.6 MEQ/L; CORD GAS O2 SAT A 43.3 %; CORD GAS PCO2 A 63.5 mmHg; CORD GAS PH A 7.24 UNITS; CORD GAS PO2 A 21.7 mmHg; CORD GAS SBC A 20.8 MEQ/L; CORD GAS TCO2 A 28.6 MEQ/L
[2018-06-16] MEDS ORDERED: DOCUSATE SODIUM 100 MG CAP PO PRN (12:15)
[2018-06-16] MEDS ORDERED: METHYLERGONOVINE MALEATE 0.2 MG TAB PO PRN (12:15)
[2018-06-16] MEDS ORDERED: RHOGAM 300 MCG (1500 IU) INJ (J2790) IM SCH (12:15)
[2018-06-16] MEDS ORDERED: IBUPROFEN 800 MG TAB PO PRN (12:15)
[2018-06-16] MEDS ORDERED: DIBUCAINE 1% OINTMENT 30GM TOP PRN (12:15)
[2018-06-16] MEDS ORDERED: MEASLES,MUMPS,RUBELLA VACCINE INJ (MMR-II) (90707) SC SCH (12:15)
[2018-06-16] MEDS ORDERED: ACETAMINOPHEN 500 MG TAB PO PRN (12:15)
[2018-06-17 06:23] VITALS: BP 98/66
--- NOTE | 2018-06-17 07:51 | DN ---
DATE OF SERVICE: 06/16/2018 Ofelia is a 23-year-old female 2, para 0-0-1-0, who was admitted at 40-3/7 weeks gestation in labor. She progressed to fully dilated after having deep variable and late deceleration down to 80 beats per minute. She then pushed delivered a live male in left occiput anterior position with an occult cord. Apgars 9 and 9, birthweight 6 pounds 13 ounces. Placenta delivered spontaneously intact. Three-vessel cord. Perineum, vagina and cervix inspected. No laceration noted. Estimated blood loss 300 mL. Both mother and baby in stable condition.
--- NOTE | 2018-06-17 07:52 | HPE ---
DATE OF ADMISSION: 06/16/2018 Ofelia is a 23-year-old female, 2, para 0-0-1-0 with an estimated date of confinement (EDC) of 06/13/2018, estimated gestational age (EGA) 40-3/7 weeks gestation who presented to labor and delivery with complaints of contraction. Upon evaluation in labor and delivery, she was found to be in early labor. At this point, a decision was made for admissionj. Her record reviewed, which was essentially unremarkable. LAB: Blood type is B+. Rubella immune. Hepatitis negative. HIV negative. GC and chlamydia negative. 1-hour sugar test was within normal limits. GBS is negative. PAST MEDICAL HISTORY: Significant for anxiety, depression, hepatitis C. Patient has been followed by infectious disease, Dr. Abbott. PAST SURGICAL HISTORY: [place] tooth extraction. SOCIAL HISTORY: She denies any alcohol, drug or cigarette smoking. REVIEW OF SYSTEMS: Unremarkable. MEDICATIONS: - vitamin ALLERGIES: NO KNOWN DRUG ALLERGY. PHYSICAL EXAMINATION: HEENT: Grossly within normal limits. Abdomen: Soft, nontender, nondistended. Extremities: No clubbing, cyanosis or edema. Vaginal exam: 2-3 cm dilated, 70% effaced. Fetus at zero station in a vertex position. Tracing reviewed. Category 1 tracing with occasional variable deceleration. ASSESSMENT: Intrauterine at 40-3/7 weeks gestation, in labor. PLAN: Admit to labor and delivery. Routine labs sent. Pain management discussed. Patient opt for an epidural. Will continue to monitor. Anticipate delivery.
[2018-06-17] MEDS ORDERED: PRENATAL VITAMINS CHEWABLE TABLET PO SCH (09:00)
[2018-06-17] MEDS ORDERED: PRENTAB9 PO (15:48)
[2018-06-17] MEDS ORDERED: MAPA500T2 PO (15:48)
[2018-06-17] MEDS ORDERED: IBUP-1114 PO (15:48)
== END 2018-06-17 16:30 | disposition home or self-care (01) | DRG 560 ==
LOC: M LDO 06:12 → M LDI 06:59 → M OBS 15:49
PROVIDERS: ADMIT Obstetrics & Gynecology; ATTEND Obstetrics & Gynecology
PROC: 10E0XZZ Delivery of Products of Conception, External Approach (ICD-10-PCS; principal; 2018-06-16)
DX: O48.0 Post-term pregnancy (principal); O99.344 Other mental disorders complicating childbirth; O98.42 Viral hepatitis complicating childbirth; Z37.0 Single live birth; Z3A.40 40 weeks gestation of pregnancy; B18.2 Chronic viral hepatitis C; R41.9 Unspecified symptoms and signs involving cognitive functions and awareness; F32.9 Major depressive disorder, single episode, unspecified; O76 Abnormality in fetal heart rate and rhythm complicating labor and delivery

== ENCOUNTER 2018-07-04 00:09 | Inpatient (IN) | payer OTHER ==
[~2018-07-04] VITALS: Ht 170.2 cm; Wt 64.0 kg
[~2018-07-04 00:09] MED LIST changes: +IBUP-1114 PO; +MAPA500T2 PO; +PRENTAB9 PO
[2018-07-04] MEDS ORDERED: NS 1,000 ML IV ONE (00:45)
[2018-07-04] MEDS ORDERED: NALOXONE INJ 2 MG/2 ML SYRINGE (J2310) IV STA (00:48)
[2018-07-04 01:29] LABS: BASO # 0.1 10^3/uL (0.0-0.2); BASO % 0.8 % (0.0-1.0); EOS # 0.6 10^3/uL (0.0-0.50); EOS % 6.2 % (0.0-3.0); HEMATOCRIT 39.5 % (36.0-47.0); HEMOGLOBIN 12.9 g/dl (12.0-15.5); LYMPH # 3.3 10^3/uL (1.5-6.5); LYMPH % 31.8 % (24.0-44.0); MEAN CORPUSCULAR HEMOGLOBIN 26.8 pg (27.0-33.0); MEAN CORPUSCULAR HGB CONC 32.7 g/dl (32.0-36.5); MEAN CORPUSCULAR VOLUME 82.1 fl (80.0-96.0); MONO # 0.5 10^3/uL (0.0-0.8); MONO % 5.2 % (0.0-5.0); NEUTROPHILS # 5.8 10^3/uL (1.8-7.7); NEUTROPHILS % 55.6 % (36.0-66.0); PLATELET COUNT, AUTOMATED 398 10^3/uL (150-450); RED BLOOD COUNT 4.81 10^6/uL (4.00-5.40); WHITE BLOOD COUNT 10.4 10^3/uL (4.0-10.0)
--- NOTE | 2018-07-04 01:58 | REPVR ---
EXAM: CT Head Without Contrast EXAM DATE/TIME: 07/04/2018 12:42 AM CLINICAL HISTORY: 23 years old, female; Signs and symptoms; Dizziness; Additional info: Sync TECHNIQUE: Imaging protocol: Axial computed tomography images of the head without contrast. Radiation optimization: All CT scans at this facility use at least one of these dose optimization techniques: automated exposure control; mA and/or kV adjustment per patient size (includes targeted exams where dose is matched to clinical indication); or iterative reconstruction. COMPARISON: CT Head without contrast 10/11/2015 1:26 AM FINDINGS: Brain: Cerebellar tonsils may be low-lying. No intracranial mass, mass effect or midline shift. No acute intracranial hemorrhage. No CT evidence of acute cortical infarct. Ventricles: Ventricles, cisterns, and sulci are normal in size for age. Bones/joints: No calvarial fracture or destructive process. Sinuses: Imaged paranasal sinuses are clear. Mastoid air cells: Mastoid air cells are normally aerated. Orbits: Imaged orbits are unremarkable. Soft tissues: No focal extracranial soft tissue swelling. IMPRESSION: 1. No acute or concerning new focal intracranial abnormality. 2. Low-lying cerebellar tonsils suggesting a Chiari 1 malformation. No change since the prior CT, and no ventricular dilatation or other complication Electronically signed by: Boom Buenrostro On 07/04/2018 01:58:38 AM
[2018-07-04 02:54] LABS: ALBUMIN 2.9 GM/DL (3.2-5.2); ALT/SGPT 28 U/L (12-78); BILIRUBIN,DIRECT < 0.1 MG/DL (0.0-0.2); BILIRUBIN,TOTAL 0.3 MG/DL (0.2-1.0); BLOOD UREA NITROGEN 10 MG/DL (7-18); CALCIUM LEVEL 5.1 MG/DL (8.5-10.1); CARBON DIOXIDE LEVEL 26 MEQ/L (21-32); CHLORIDE LEVEL 105 MEQ/L (98-107); CREATININE FOR GFR 0.76 MG/DL (0.55-1.30); ETHYL ALCOHOL (ETHANOL) < 0.003 % (0.000-0.010); GLOMERULAR FILTRATION RATE > 60.0 (>60); GLUCOSE, FASTING 88 MG/DL (70-100); POTASSIUM SERUM 4.8 MEQ/L (3.5-5.1); SODIUM LEVEL 142 MEQ/L (136-145); TOTAL PROTEIN 7.3 GM/DL (6.4-8.2)
[2018-07-04] MEDS ORDERED: CALCIUM GLUCONATE 1,000 MG in D5W MINI-BAG PLUS 100 ML IV ONE ×4 (03:00→15:00)
[2018-07-04] MEDS ORDERED: IBUP-1091 PO (03:16)
[2018-07-04] MEDS ORDERED: PREN1TAB25 PO (03:16)
[2018-07-04 03:58] LABS: AMPHETAMINES LEVEL URINE NEGATIVE (NEGATIVE); BARBITURATES URINE NEGATIVE (NEGATIVE); BENZODIAZEPINES URINE NEGATIVE (NEGATIVE); CANNABINOIDS URINE POSITIVE (NEGATIVE); COCAINE METABOLITE URINE NEGATIVE (NEGATIVE); METHADONE URINE NEGATIVE (NEGATIVE); OPIATES URINE NEGATIVE (NEGATIVE); PHENCYCLIDINE URINE NEGATIVE (NEGATIVE)
[2018-07-04] MEDS ORDERED: ACETAMINOPHEN TAB 650MG DOSE (2X325MG) PO PRN (04:30)
[2018-07-04] MEDS ORDERED: MOM 30ML SUSPENSION UDC PO PRN (04:30)
[2018-07-04] MEDS ORDERED: MAALOX 30 ML SUSP *UDC PO PRN (04:30)
[2018-07-04] MEDS ORDERED: NICOTINE 21MG/24HR 1 EA TRANSDERMAL TD PRN (04:45)
[2018-07-04] MEDS ORDERED: IBUPROFEN 400 MG TAB PO PRN (04:45)
--- NOTE | 2018-07-04 04:51 | HPEPDOC ---
General Date of Admission July 04, 2018 at 04:24 Chief Complaint The patient is a 23-year-old [facility] Source: Patient, Family, RN/MD History of Present Illness Ms. Roberts is a 23 years old woman with hx/o Hep C infection, who is s/p three week vaginal delivery at [place]. She was brought to ER last night for evaluation of seizure, which was witnessed by her boyfriend and described as "passing out, stiff arms and body, and shaking". Family reports pt being lethargic, low energy and weak for abut a month; and thought it was effect of childbirth and other family stress. Pt also reports numbness and tingling of the jaw and hands. Yrn any trauma. Family report that pt has been pumping milk for the baby, and her oral intake has decreased since giving . In the ER, pt was hemodynamically stable, afebrile, lethargic, but easily arousable and following commands; not in distress. Labs showed very low Calcium level 5.1, and low Albumin 2.9. Head CT: Chiari 1 malformation, unchanged from old head CT. EKG: SR, QTc 460 ms. Home Medications Scheduled Pnv No.95/Ferrous Fum/Folic AC ( Caplet) 1 Each Tablet, 1 EACH PO DAILY, (Reported) Scheduled PRN Ibuprofen (Ibuprofen) 200 Mg Tablet, 400 MG PO Q6H PRN for PAIN / FEVER, (Reported) Allergies Coded Allergies: No Known Allergies (Unverified , 06/16/18) Past Medical History Medical History Hepatitic C, Chiari 1 Malformation Family History Significant Family History: Other (Hypothyroidism) Social History * Smoker: current smoker Alcohol: Denies Drugs: marijuana A-FIB/CHADSVASC A-FIB History Current/History of A-Fib/PAF?: No Review of Systems Constitutional: Reports: Malaise, Weakness, Fatigue; Denies: Chills, Fever Eyes: Denies: Pain ENT: Denies: Head Aches Skin: Denies: Rash, Lesions Pulmonary: Denies: Dyspnea, Cough Cardiovascular: Denies: Chest Pain, Edema Gastrointestinal: Denies: Nausea, Vomiting, Abdominal Pain, Diarrhea, Constipation Genitourinary: Denies: Dysuria Musculoskeletal: Denies: Neck Pain, Back Pain Neurological: Reports: Weakness, Numbness, Seizures Psych: Reports: Mood Normal Physical Examination General Exam: Positive: Alert, Cooperative, No Acute Distress, Other (sleepy, but eaasily arousable) Eye Exam: Positive: PERRLA ENT Exam: Positive: Atraumatic Neck Exam: Positive: Supple; Negative: JVD Chest Exam: Positive: Clear to auscultation, Normal air movement Heart Exam: Positive: Rate Normal, Regular Rhythm Abdomen Exam: Positive: Normal bowel sounds, Soft; Negative: Tenderness Extremity Exam: Positive: Normal pulses; Negative: Edema Skin Exam: Positive: Nl turgor and temperature; Negative: Rash, Breakdown Neuro Exam: Positive: Normal Speech Psych Exam: Positive: Mental status NL, Mood NL, Oriented x 3 Vital Signs Vital Signs Date Time Temp Pulse Resp B/P (MAP) Pulse Ox O2 Delivery O2 Flow Rate FiO2 07/04/18 00:21 98.3 87 18 98/53 (68) 93 Laboratory Data Labs 24H Laboratory Tests 2 07/04/18 00:58: Immature Granulocyte % (Auto) 0.4, White Blood Count 10.4H, Red Blood Count 4 .81, Hemoglobin 12.9, Hematocrit 39.5, Mean Corpuscular Volume 82.1, Mean Corpuscular Hemoglobin 26.8L, Mean Corpuscular Hemoglobin Concent 32.7, Red Cell Distribution Width 14.6H, Platelet Count 398, Neutrophils (%) (Auto) 55.6, Lymphocytes (%) (Auto) 31.8, Monocytes (%) (Auto) 5.2H, Eosinophils (%) (Auto) 6.2H, Basophils (%) (Auto) 0.8, Neutrophils # (Auto) 5.8, Lymphocytes # (Auto) 3.3, Monocytes # (Auto) 0.5, Eosinophils # (Auto) 0.6H, Basophils # (Auto) 0.1, Nucleated Red Blood Cells % (auto) 0.0, Anion Gap 11, Glomerular Filtration Rate > 60.0, Calcium Level 5.1*L, Aspartate Amino Transf (AST/SGOT) 48H, Alanine Aminotransferase (ALT/SGPT) 28, Alkaline Phosphatase 110, Total Bilirubin 0.3, Direct Bilirubin < 0.1, Total Protein 7.3, Albumin 2.9L, Albumin/Globulin Ratio 0.66L, Ethyl Alcohol Level < 0.003 07/04/18 03:34: Urine Color YELLOW, Urine Appearance CLEAR, Urine pH 7.0, Urine Specific [place] 1.009, Urine Protein NEGATIVE, Urine Glucose (UA) NEGATIVE, Urine Ketones NEGATIVE, Urine Blood 1+H, Urine Nitrite NEGATIVE, Urine Bilirubin NEGATIVE, Urine Urobilinogen 0.2, Urine Leukocyte Esterase TRACEH, Urine WBC (Auto) 3, Urine RBC (Auto) 3, Urine Hyaline Casts (Auto) 0, Urine Bacteria (Auto) NEGATIVE, Urine Squamous Epithelial Cells 0, Urine Sperm (Auto) , Urine Amphetamines Screen NEGATIVE, Urine Benzodiazepines Screen NEGATIVE, Urine Opiates Screen NEGATIVE, Urine Methadone Screen NEGATIVE, Urine Barbiturates Screen NEGATIVE, Urine Phencyclidine Screen NEGATIVE, Urine Cocaine Metabolite Screen NEGATIVE, Urine Cannabinoids Screen POSITIVEH CBC/BMP Laboratory Tests 07/04/18 00:58 Red Blood Count 4.81, Mean Corpuscular Volume 82.1, Mean Corpuscular Hemoglobin 26.8 L, Mean Corpuscular Hemoglobin Concent 32.7, Red Cell Distribution Width 14.6 H, Neutrophils (%) (Auto) 55.6, Lymphocytes (%) (Auto) 31.8, Monocytes (%) (Auto) 5.2 H, Eosinophils (%) (Auto) 6.2 H, Basophils (%) (Auto) 0.8, Neutrophils # (Auto) 5.8, Lymphocytes # (Auto) 3.3, Monocytes # (Auto) 0.5, Eosinophils # (Auto) 0.6 H, Basophils # (Auto) 0.1 Microbiology Microbiology 07/04/18 Urine Culture, Received Pending Assessment/Plan Symptomatic Hypocalcemia with Seizure - Several factors likely to be involved: hypothyroidism, Calcium loss from breast milk pumping, poor oral intake, chronic liver disease (Hep C), Vitamin D def, Hypomagnesemia, Hypercatabolic state () - Admit to inpatient; Tele, Seizure precaution - IV Calcium, followed by oral Calcium, and Calcitriol. Supplement Magnesium if low. - Check Mg, PTH, and Vit D levels - Hold breast pumping now Plan / VTE VTE Prophylaxis Ordered?: Yes Plan Anticipated Discharge: EMELY Choudhury MD July 04, 2018 04:51
--- NOTE | 2018-07-04 07:26 | ECGEPIP ---
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
[2018-07-04 07:34] LABS: ALBUMIN 2.5 GM/DL (3.2-5.2); ALT/SGPT 24 U/L (12-78); BILIRUBIN,TOTAL 0.2 MG/DL (0.2-1.0); BLOOD UREA NITROGEN 8 MG/DL (7-18); CARBON DIOXIDE LEVEL 27 MEQ/L (21-32); CHLORIDE LEVEL 106 MEQ/L (98-107); CREATININE FOR GFR 0.68 MG/DL (0.55-1.30); GLOMERULAR FILTRATION RATE > 60.0 (>60); GLUCOSE, FASTING 90 MG/DL (70-100); PHOSPHORUS LEVEL 6.7 MG/DL (2.5-4.9); SODIUM LEVEL 142 MEQ/L (136-145); THYROID STIMULATING HORMONE 0.685 uIU/ML (0.358-3.740); TOTAL PROTEIN 6.9 GM/DL (6.4-8.2)
[2018-07-04] MEDS ORDERED: VITAMIN D 1,000 INTERNATIONAL UNITS TABLET PO SCH (08:00)
[2018-07-04 08:03] LABS: CALCIUM LEVEL 5.4 MG/DL (8.5-10.1); POTASSIUM SERUM 3.7 MEQ/L (3.5-5.1)
[2018-07-04] MEDS: DOCUSATE SODIUM 100 MG CAP PO SCH ×2 (09:00→20:12)
[2018-07-04 09:08] LABS: MAGNESIUM LEVEL 1.8 MG/DL (1.8-2.4)
[2018-07-04 09:19] LABS: PTH INTACT < 6.3 PG/ML (18.5-88.0); TOTAL 25(OH) VITAMIN D 19.9 NG/ML (30.0-100.0)
[2018-07-04 11:00] VITALS: BP 117/82
[2018-07-04] MEDS ORDERED: VITAMIN D 50,000 UNITS CAPSULE (ERGOCALCIFEROL 1.25MG) PO ONE (12:00)
[2018-07-04] MEDS: HEPARIN SOD (PORCINE) 5000 UNITS/ML VIAL SC SCH ×2 (12:00→20:12)
[2018-07-04] MEDS: CALCITRIOL 0.25 MCG CAP (S0169) PO SCH ×2 (12:00→20:12)
[2018-07-04] MEDS: CALCIUM CARBONATE 500 MG CHEW U/D PO SCH ×3 (12:01→20:12)
[2018-07-04 12:30] LABS: FREE T3 3.2 PG/ML (2.2-4.0); FREE T4 1.09 NG/DL (0.76-1.46); MAGNESIUM LEVEL 1.5 MG/DL (1.8-2.4)
[2018-07-04 16:00] VITALS: BP 118/81
[2018-07-04] MEDS ORDERED: MAG SULF 1GM/100ML (MAG RUN) 1 GM in APPROPRIATE DILUENT 1 EA IV ONE (16:00)
[2018-07-04 19:26] LABS: CALCIUM LEVEL 6.2 MG/DL (8.5-10.1); MAGNESIUM LEVEL 1.8 MG/DL (1.8-2.4)
[2018-07-04 20:00] VITALS: BP 114/80
[2018-07-05] VITALS: BP 121/83
[2018-07-05 04:00] VITALS: BP 109/66
[2018-07-05 05:03] LABS: HEMATOCRIT 39.8 % (36.0-47.0); HEMOGLOBIN 12.9 g/dl (12.0-15.5); MEAN CORPUSCULAR HGB CONC 32.4 g/dl (32.0-36.5); MEAN CORPUSCULAR VOLUME 80.2 fl (80.0-96.0); PLATELET COUNT, AUTOMATED 403 10^3/uL (150-450); RED BLOOD COUNT 4.96 10^6/uL (4.00-5.40); WHITE BLOOD COUNT 8.7 10^3/uL (4.0-10.0)
[2018-07-05 05:48] LABS: ALBUMIN 2.6 GM/DL (3.2-5.2); ALT/SGPT 25 U/L (12-78); BILIRUBIN,TOTAL 0.3 MG/DL (0.2-1.0); BLOOD UREA NITROGEN 9 MG/DL (7-18); CALCIUM LEVEL 6.2 MG/DL (8.5-10.1); CARBON DIOXIDE LEVEL 27 MEQ/L (21-32); CHLORIDE LEVEL 104 MEQ/L (98-107); CREATININE FOR GFR 0.83 MG/DL (0.55-1.30); GLOMERULAR FILTRATION RATE > 60.0 (>60); GLUCOSE, FASTING 86 MG/DL (70-100); MAGNESIUM LEVEL 1.8 MG/DL (1.8-2.4); SODIUM LEVEL 141 MEQ/L (136-145); TOTAL PROTEIN 6.9 GM/DL (6.4-8.2)
[2018-07-05 08:00] VITALS: BP 108/68
[2018-07-05] MEDS: HEPARIN SOD (PORCINE) 5000 UNITS/ML VIAL SC SCH (08:36)
[2018-07-05] MEDS: CALCIUM CARBONATE 500 MG CHEW U/D PO SCH (08:37)
[2018-07-05] MEDS: CALCITRIOL 0.25 MCG CAP (S0169) PO SCH (08:37)
[2018-07-05] MEDS: DOCUSATE SODIUM 100 MG CAP PO SCH (08:37)
[2018-07-05] MEDS ORDERED: CALCIUM/VITAMIN D 500 MG TAB PO SCH (09:00)
[2018-07-05] MEDS ORDERED: CALCD50TA PO (09:49)
--- NOTE | 2018-07-05 09:56 | DS.PDOC ---
Discharge Summary General Date of Admission July 04, 2018 at 04:24 Date of Discharge 07/05/18 Attending Physician: MARY RUBY MD Discharge Summary PROCEDURES PERFORMED DURING STAY: None. ADMITTING DIAGNOSES: 1. Hypocalcemia, hypomagnesemia. DISCHARGE DIAGNOSES: 1. Hypocalcemia, hypomagnesemia. COMPLICATIONS/CHIEF COMPLAINT: Hypocalcemia. HISTORY OF PRESENT ILLNESS: Ms. Roberts is a 23 years old woman with hx/o Hep C infection, who is s/p three week vaginal delivery at [place]. She was brought to ER last night for evaluation of seizure, which was witnessed by her boyfriend and described as "passing out, stiff arms and body, and shaking". Family reports pt being lethargic, low energy and weak for abut a month; and thought it was effect of childbirth and other family stress. Pt also reports numbness and tingling of the jaw and hands. Yrn any trauma. Family report that pt has been pumping milk for the baby, and her oral intake has decreased since giving .. HOSPITAL COURSE: Patient was transferred to ICU for close monitoring. She required multiple doses of calcium gluconate as well as magnesium sulfate. Patient also was given vitamin D 50,000 units 1 and 6, received vitamin D supplements as well Patient progressively improved. Her tiredness, fatigue, resolved. No seizures were observed. Her corrected serum calcium level is 7.32 today with a magnesium of 1.8. Patient has a young infant at [place] and would like to go back patient is clinically stable, asymptomatic and possibly can be discharged home on by mouth calcium and vitamin D supplement. Extensive counseling regarding drug abuse, especially marijuana abuse while lactating and the breast-feeding her child was explained to her, all risks were explained and she understands very well and plans to abstain from any drugs, especially marijuana. . DISCHARGE MEDICATIONS: Please see below. ALLERGIES: Please see below. PHYSICAL EXAMINATION ON DISCHARGE: VITAL SIGNS: Please see below. GENERAL: Within normal limits HEENT: PERRLA NECK: Supple, no JVD CARDIOVASCULAR EXAMINATION: S1, S2, regular RESPIRATORY EXAMINATION: Clear to A&P ABDOMINAL EXAMINATION: Benign EXTREMITIES: No clubbing, cyanosis, edema SKIN: Normal NEUROLOGICAL EXAMINATION: Normal PSYCHIATRIC EXAMINATION: Normal LABORATORY DATA: Please see below. IMAGING: As per EMR PROGNOSIS: Good ACTIVITY: As tolerated. DIET: Regular DISCHARGE PLAN: Home DISPOSITION: . Home DISCHARGE INSTRUCTIONS: 1. As above. ITEMS TO FOLLOWUP ON ON OUTPATIENT: 1. As above. DISCHARGE CONDITION: Stable. TIME SPENT ON DISCHARGE: Greater than 35 minutes. Vital Signs/I&Os Vital Signs Date Time Temp Pulse Resp B/P (MAP) Pulse Ox O2 Delivery O2 Flow Rate FiO2 07/05/18 04:00 99.0 55 16 109/66 (80) 93 07/04/18 10:33 Room Air I&O- Last 24 Hours up to 6 AM 07/05/18 06:00 Intake Total 1160 ml Output Total 800 ml Balance 360 ml Laboratory Data Labs 24H Laboratory Tests 2 07/04/18 11:40: Calcium Level 6.0L, Whole Blood Ionized Calcium 3.0*L, Magnesium Level 1.5L, Thyroid Stimulating Hormone (TSH) 1.000, Free Thyroxine 1.09, Free Triiodothyronine 3.2 07/04/18 18:47: Calcium Level 6.2L, Magnesium Level 1.8 07/05/18 04:53: Calcium Level 6.2L, Magnesium Level 1.8, Nucleated Red Blood Cells % (auto) 0.0, Anion Gap 10, Glomerular Filtration Rate > 60.0, Blood Urea Nitrogen 9, Creatinine 0.83, Sodium Level 141, Potassium Level 4.0, Chloride Level 104, Carbon Dioxide Level 27, Aspartate Amino Transf (AST/SGOT) 27, Alanine Ami notransferase (ALT/SGPT) 25, Alkaline Phosphatase 101, Total Bilirubin 0.3, Total Protein 6.9, Albumin 2.6L, Albumin/Globulin Ratio 0.60L CBC/BMP Laboratory Tests 07/05/18 04:53 Red Blood Count 4.96, Mean Corpuscular Volume 80.2, Mean Corpuscular Hemoglobin 26.0 L, Mean Corpuscular Hemoglobin Concent 32.4, Red Cell Distribution Width 14.3, Calcium Level 6.2 L, Aspartate Amino Transf (AST/SGOT) 27, Alanine Aminotransferase (ALT/SGPT) 25, Alkaline Phosphatase 101, Total Bilirubin 0.3, Total Protein 6.9, Albumin 2.6 L Microbiology Microbiology 07/04/18 Urine Culture - Final, Complete Discharge Medications Scheduled Calcium/Vitamin D (Calcium 500-Vit D3 200 Tablet) 1 Each Tablet, 1,000 MG PO BID Allergies Coded Allergies: No Known Allergies (Unverified , 06/16/18) MARY RUBY MD July 05, 2018 09:56
[2018-07-05 11:00] VITALS: BP 123/87
== END 2018-07-05 11:41 | disposition home or self-care (01) | DRG 561 ==
LOC: M ED 00:09 → M ED INP 04:24 → M ICU 10:43
PROVIDERS: ADMIT Internal Medicine; ATTEND Internal Medicine
DX: O99.285 Endocrine, nutritional and metabolic diseases complicating the puerperium (principal); R56.9 Unspecified convulsions; E83.42 Hypomagnesemia; E83.51 Hypocalcemia

== ENCOUNTER 2018-07-24 14:22 | Emergency (ER) | payer OTHER ==
[~2018-07-24] VITALS: Ht 170.2 cm; Wt 63.8 kg
[~2018-07-24 14:22] MED LIST changes: +CALCD50TA PO; +IBUP-1091 PO; +PREN1TAB25 PO
[2018-07-24] MEDS ORDERED: ACETAMINOPHEN 325 MG TAB PO ONE (15:45)
[2018-07-24] MEDS ORDERED: NS 1,910 ML in APPROPRIATE DILUENT 1 EA IV ONE (15:45)
[2018-07-24 17:24] LABS: BASO # 0.1 10^3/uL (0.0-0.2); BASO % 0.3 % (0.0-1.0); EOS # 0.1 10^3/uL (0.0-0.50); EOS % 0.3 % (0.0-3.0); HEMATOCRIT 42.5 % (36.0-47.0); HEMOGLOBIN 14.3 g/dl (12.0-15.5); LYMPH # 0.9 10^3/uL (1.5-6.5); LYMPH % 5.8 % (24.0-44.0); MEAN CORPUSCULAR HEMOGLOBIN 27.4 pg (27.0-33.0); MEAN CORPUSCULAR HGB CONC 33.6 g/dl (32.0-36.5); MEAN CORPUSCULAR VOLUME 81.4 fl (80.0-96.0); MONO # 0.3 10^3/uL (0.0-0.8); MONO % 1.7 % (0.0-5.0); NEUTROPHILS # 14.2 10^3/uL (1.8-7.7); NEUTROPHILS % 91.2 % (36.0-66.0); PLATELET COUNT, AUTOMATED 302 10^3/uL (150-450); RED BLOOD COUNT 5.22 10^6/uL (4.00-5.40); WHITE BLOOD COUNT 15.6 10^3/uL (4.0-10.0)
[2018-07-24 17:44] LABS: ALBUMIN 3.4 GM/DL (3.2-5.2); ALT/SGPT 37 U/L (12-78); BILIRUBIN,DIRECT 0.1 MG/DL (0.0-0.2); BILIRUBIN,TOTAL 0.4 MG/DL (0.2-1.0); BLOOD UREA NITROGEN 12 MG/DL (7-18); C REACTIVE PROTEIN QUANTITATIV 1.63 MG/DL (0.00-0.30); CALCIUM LEVEL 6.5 MG/DL (8.5-10.1); CARBON DIOXIDE LEVEL 28 MEQ/L (21-32); CHLORIDE LEVEL 102 MEQ/L (98-107); FREE T4 0.99 NG/DL (0.76-1.46); GLOMERULAR FILTRATION RATE > 60.0 (>60); GLUCOSE, FASTING 98 MG/DL (70-100); POTASSIUM SERUM 3.9 MEQ/L (3.5-5.1); SODIUM LEVEL 140 MEQ/L (136-145); THYROID STIMULATING HORMONE 0.465 uIU/ML (0.358-3.740); TOTAL PROTEIN 7.6 GM/DL (6.4-8.2)
[2018-07-24 17:46] LABS: PTH INTACT < 6.3 PG/ML (18.5-88.0)
--- NOTE | 2018-07-24 17:55 | REP ---
PE PELVIC ULTRASOUND: Real-time sonographic evaluation of the pelvis was performed utilizing transabdominal and endovaginal technique. The bladder measures 6.9 x 5.7 x 4.4 cm. The uterus measures 8.1 x 5.1 x 6.4 cm. Endometrial thickness is 3 mm. There is no endometrial fluid collection. Right ovary is normal in size and echotexture measuring 3.4 x 2.0 x 2.1 cm. There is no right ovarian torsion. Resistive index 0.55. Left ovary could not be visualized. There is trace free fluid. There is no adnexal mass identified. IMPRESSION: Normal endometrium. Normal right ovary. Left ovary not visualized. Trace free fluid. Electronically Signed by Shayne Oviedo MD 07/25/2018 12:08 P
[2018-07-24 18:13] LABS: MAGNESIUM LEVEL 1.5 MG/DL (1.8-2.4)
[2018-07-24] MEDS ORDERED: CALCIUM CHLORIDE 10% 1 GM in D5W 100 ML IV ONE (18:15)
[2018-07-24] MEDS ORDERED: CALCIUM GLUCONATE 1,000 MG in D5W MINI-BAG PLUS 100 ML IV ONE (18:30)
--- NOTE | 2018-07-24 19:48 | REP ---
REASON: Fever. COMPARISON: 11/13/2015 FINDINGS: The superior mediastinal structures are midline. The cardiac silhouette is unremarkable in size, shape, and position. The diaphragmatic surfaces of the lungs are regular, and the costophrenic angles are clear. The pulmonary ward are clear. The imaged osseous structures are intact. IMPRESSION: There is no acute cardiopulmonary disease. Electronically Signed by Omar Pace DO 07/24/2018 07:51 P
[2018-07-24 20:04] VITALS: BP 124/84
--- NOTE | 2018-07-25 08:02 | ECGEPIP ---
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
== END 2018-07-24 20:02 | disposition left against medical advice (07) ==
LOC: M ED 14:22
DX: E83.51 Hypocalcemia (principal); R50.9 Fever, unspecified; E20.9 Hypoparathyroidism, unspecified; G40.909 Epilepsy, unspecified, not intractable, without status epilepticus; B19.20 Unspecified viral hepatitis C without hepatic coma; F32.9 Major depressive disorder, single episode, unspecified; Z72.0 Tobacco use
CPT/HCPCS: 71046; 76830; 76856; 80048; 80076; 81001; 83605; 83735; 83970; 84439; 84443; 85025; 86140; 87040; 93005; 93976; 96365; 96375; 99284; J0610

== ENCOUNTER → 2018-07-31 | Outpatient (CLI) | payer OTHER ==
[2018-07-31 09:55] LABS: BASO # 0.1 10^3/uL (0.0-0.2); BASO % 0.6 % (0.0-1.0); EOS # 0.3 10^3/uL (0.0-0.50); EOS % 3.1 % (0.0-3.0); HEMATOCRIT 41.1 % (36.0-47.0); HEMOGLOBIN 13.1 g/dl (12.0-15.5); LYMPH # 3.8 10^3/uL (1.5-6.5); LYMPH % 43.3 % (24.0-44.0); MEAN CORPUSCULAR HEMOGLOBIN 26.8 pg (27.0-33.0); MEAN CORPUSCULAR HGB CONC 31.9 g/dl (32.0-36.5); MEAN CORPUSCULAR VOLUME 84.2 fl (80.0-96.0); MONO # 0.7 10^3/uL (0.0-0.8); MONO % 7.9 % (0.0-5.0); NEUTROPHILS # 3.9 10^3/uL (1.8-7.7); NEUTROPHILS % 44.9 % (36.0-66.0); PLATELET COUNT, AUTOMATED 315 10^3/uL (150-450); RED BLOOD COUNT 4.88 10^6/uL (4.00-5.40); WHITE BLOOD COUNT 8.7 10^3/uL (4.0-10.0)
[2018-07-31 10:43] LABS: ALBUMIN 3.4 GM/DL (3.2-5.2); ALT/SGPT 34 U/L (12-78); BILIRUBIN,TOTAL 0.3 MG/DL (0.2-1.0); BLOOD UREA NITROGEN 18 MG/DL (7-18); CALCIUM LEVEL 6.8 MG/DL (8.5-10.1); CARBON DIOXIDE LEVEL 29 MEQ/L (21-32); CHLORIDE LEVEL 102 MEQ/L (98-107); CREATININE FOR GFR 0.83 MG/DL (0.55-1.30); GLOMERULAR FILTRATION RATE > 60.0 (>60); GLUCOSE, FASTING 91 MG/DL (70-100); POTASSIUM SERUM 4.4 MEQ/L (3.5-5.1); RHEUMATOID FACTOR QUANT < 10.0 IU/ML (<15.0); SODIUM LEVEL 142 MEQ/L (136-145); TOTAL 25(OH) VITAMIN D 27.4 NG/ML (30.0-100.0); TOTAL PROTEIN 7.6 GM/DL (6.4-8.2)
[2018-07-31 10:59] LABS: ERYTHROCYTE SEDIMENTATION RATE 43 mm/hr (0-20)
[2018-08-01 14:12] LABS: ANTINUCLEAR ANTIBODIES DIRECT Negative (Negative)
== END ==
LOC: M LAB 08:59
PROVIDERS: ATTEND Psychiatry & Neurology Neurology
DX: R55 Syncope and collapse (principal)

== ENCOUNTER → 2018-08-15 | Outpatient (REF) | payer OTHER | LOC: M SFHCADAM 09:46 | PROVIDERS: ATTEND Physician Assistant Medical | DX: E83.51 Hypocalcemia (principal); E83.42 Hypomagnesemia ==

== ENCOUNTER → 2018-09-19 | Outpatient (CLI) | payer OTHER ==
[2018-09-19 10:53] LABS: BLOOD UREA NITROGEN 20 MG/DL (7-18); CALCIUM LEVEL 7.7 MG/DL (8.5-10.1); CARBON DIOXIDE LEVEL 30 MEQ/L (21-32); CHLORIDE LEVEL 105 MEQ/L (98-107); CREATININE FOR GFR 0.93 MG/DL (0.55-1.30); GLOMERULAR FILTRATION RATE > 60.0 (>60); GLUCOSE, FASTING 73 MG/DL (70-100); POTASSIUM SERUM 4.2 MEQ/L (3.5-5.1); SODIUM LEVEL 140 MEQ/L (136-145)
== END ==
LOC: M LAB 09:43
DX: E20.0 Idiopathic hypoparathyroidism (principal)

== ENCOUNTER 2018-10-22 11:55 | Emergency (ER) | payer OTHER ==
[~2018-10-22] VITALS: Ht 165.1 cm; Wt 61.4 kg
[~2018-10-22 11:55] MED LIST changes: -IBUP-1091 PO; +IBUP-1720 PO
[2018-10-22 13:03] LABS: BASO # 0.1 10^3/uL (0.0-0.2); BASO % 0.5 % (0.0-1.0); EOS # 0.3 10^3/uL (0.0-0.5); EOS % 2.8 % (0.0-3.0); HEMATOCRIT 40.3 % (36.0-47.0); HEMOGLOBIN 13.2 g/dl (12.0-15.5); LYMPH # 3.2 10^3/uL (1.5-5.0); MEAN CORPUSCULAR HEMOGLOBIN 27.7 pg (27.0-33.0); MEAN CORPUSCULAR HGB CONC 32.8 g/dl (32.0-36.5); MEAN CORPUSCULAR VOLUME 84.5 fl (80.0-96.0); MONO # 0.7 10^3/uL (0.0-0.8); NEUTROPHILS # 7.5 10^3/uL (1.5-8.5); NEUTROPHILS % 63.4 % (36.0-66.0); PLATELET COUNT, AUTOMATED 324 10^3/uL (150-450); RED BLOOD COUNT 4.77 10^6/uL (4.00-5.40); WHITE BLOOD COUNT 11.8 10^3/uL (4.0-10.0)
[2018-10-22 13:27] LABS: ALBUMIN 3.8 GM/DL (3.2-5.2); ALT/SGPT 23 U/L (12-78); BILIRUBIN,DIRECT < 0.1 MG/DL (0.0-0.2); BILIRUBIN,TOTAL 0.3 MG/DL (0.2-1.0); BLOOD UREA NITROGEN 12 MG/DL (7-18); C REACTIVE PROTEIN QUANTITATIV 1.87 MG/DL (0.00-0.30); CALCIUM LEVEL 6.4 MG/DL (8.5-10.1); CARBON DIOXIDE LEVEL 32 MEQ/L (21-32); CHLORIDE LEVEL 101 MEQ/L (98-107); CREATININE FOR GFR 0.78 MG/DL (0.55-1.30); GLOMERULAR FILTRATION RATE > 60.0 (>60); GLUCOSE, FASTING 66 MG/DL (70-100); POTASSIUM SERUM 3.9 MEQ/L (3.5-5.1); SODIUM LEVEL 139 MEQ/L (136-145); TOTAL PROTEIN 7.9 GM/DL (6.4-8.2)
[2018-10-22] MEDS ORDERED: ISOVUE-370 76% 100ML VIAL (Q9967) As Ordered ONE (13:30)
--- NOTE | 2018-10-22 13:57 | REP ---
Clinical: Focal swelling. History of IVDA. Technique: Axial contrast enhanced images from the thoracic inlet to the upper abdomen with coronal and sagittal re-formations using 100 ml Isovue 370 intravenous contrast material. Findings: There is a rim enhancing fluid collection consistent with abscess measuring approximately 2.6 x 2.6 x 3.2 cm diameter in the left supraclavicular subcutaneous tissue with surrounding soft tissue swelling (images 50-68). Remainder of the examination is normal. No further adenopathy. The airway is patent and midline. No parapharyngeal or retropharyngeal abscess or swelling noted. The sinuses are well aerated and clear. The orbits including globes and intraconal contents are normal. The thyroid, parotid and submandibular glands are symmetric and normal. The osseous structures are intact. The vascular structures appear relatively symmetric and normal. Impression: 3.2 x 2.6 x 2.6 cm abscess in the subcutaneous tissues of the left supraclavicular region. Electronically Signed by Brad Kumari MD 10/22/2018 01:48 P
[2018-10-22 14:03] LABS: ERYTHROCYTE SEDIMENTATION RATE 38 mm/hr (0-20)
[2018-10-22 15:19] VITALS: BP 137/91
[2018-10-22] MEDS ORDERED: KETOROLAC 30 MG/ML VIAL (J1885) IM ONE (15:30)
[2018-10-22] MEDS ORDERED: LIDOCAINE W/EPINEPHRINE 1% 20ML VIAL SC ONE (15:45)
[2018-10-22] MEDS ORDERED: KETOROLAC 30 MG/ML VIAL (J1885) IV ONE (16:15)
[2018-10-22] MEDS ORDERED: CEFTAROLINE FOSAMIL 600 MG in D5W MINI-BAG PLUS 50 ML IV ONE (16:30)
--- NOTE | 2018-10-22 17:36 | CR.PDOC ---
General Date of Consultation: Oct 22, 2018 Consultation REASON FOR CONSULTATION/CHIEF COMPLAINT: Presented to the emergency room with left neck swelling HISTORY OF PRESENT ILLNESS: Patient is a 23-year-old female with a past medical history significant for IV drug abuse, who presented to the emergency room with left neck swelling. Patient reported that approximately 1-2 weeks ago she had injected heroin intravenously into her left neck. Patient reported that a few days after she noted a small pimple under the skin, but continued to grow in size. Patient reported that he began to cause discomfort, which prompted her coming to the ER. Patient denies any fevers or chills at home. She reports some nausea and vomiting Tuesday evening, but is not experiencing such since that point. Patient denies any abdominal pain, constipation, diarrhea or discomfort with urination. She denies chest pain, shortness of breath and has not had any significant change in her baseline cough. Patient denies any recent antibiotic use. Patient does report a decrease in her weight, but attributes this to her thyroid. She reports a poor appetite. In the emergency room, patient was seen and evaluated by ENT, Dr. Osorio. . He has performed an incision and drainage at the bedside and placed a Era drain. Abscess drainage was sent to the lab for culture. ER provider was advised to contact hospitalist service for inpatient admission for IV antibiotics, however patient will be leaving AGAINST MEDICAL ADVICE to care for her child at home. ER provider has reached out to addiction social worker for support, however despite this, patient will be leaving AGAINST MEDICAL ADVICE. ALLERGIES: Please see below. HOME MEDICATIONS: Please see below. PAST MEDICAL HISTORY: History of IV drug abuse PAST SURGICAL HISTORY: No reported surgeries FAMILY HISTORY: - Mother and father without any reported medical problems SOCIAL HISTORY: - Denies the use of alcohol or tobacco; patient reports that she does not use any drugs currently. However, she did have a prior use of heroin approximately 1-2 weeks ago; she also reports that she has been on Suboxone which has been tapered off - Denies recent travel or sick contacts REVIEW OF SYSTEMS: 10 point review of systems complete, all negative otherwise stated in HPI PHYSICAL EXAMINATION: - Vitals: BP 137/91, HR 66, RR 18, Sat 100%RA, Temp 97.5F - General: Lying in bed, No acute distress, Speaking in full sentences, AAOx3 - HEENT: PERRLA, EOMI, left neck with dressing in place - CVS: RRR, +S1S2 - Lungs: Fair air entry bilaterally, No appreciable wheezing / rales / rhonchi - Abdomen: Soft, Non-distended, Non-tender - Extremities: No lower extremity edema, No calf tenderness - Neuro: No focal motor or sensory deficit - Skin: No visible rashes LABORATORY DATA: Please see below. ASSESSMENT/PLAN: Left neck abscess - likely 2/2 recent IV drug abuse - Patient is presented to the emergency room after experiencing progressive left neck swelling - Reported that it started as a pimple beneath the skin - She denies any fevers or chills - Mild leukocytosis; mild elevation of CRP - Blood cultures and abscess cultures remain pending - CT Neck 10/22: 3.2 x 2.6 x 2.6 cm abscess in the subcutaneous tissues of the left supraclavicular region. - ENT, Dr. Osorio has performed bedside incision and drainage - Would recommend continued IV antibiotics with Ceftaroline for coverage of MRSA pending results of abscess cultures - Patient has reported that she will be leaving AGAINST MEDICAL ADVICE; risks have been outlined to the patient; these include but are not limited to, worsening of medical condition, disability and/or - patient has verbalized understanding - Patient reports that she will return back to the emergency room for her subsequent dose of antibiotics tomorrow AM; again it has been reiterated to her that this is not the ideal treatment plan - Discussed with ER provider, who has reached up to addiction social worker and ENT for support IV drug abuse - Patient reported that she recently used marijuana in approximately 1-2 weeks ago - She reports that she has been on Suboxone in the past, however, has been tapered off DVT prophylaxis - If patient does not leave AGAINST MEDICAL ADVICE would start Lovenox Vital Signs/I&O Vital Signs Date Time Temp Pulse Resp B/P (MAP) Pulse Ox O2 Delivery O2 Flow Rate FiO2 10/22/18 15:19 97.5 66 18 137/91 (106) 100 Room Air Laboratory Data Labs 24H Laboratory Tests 2 10/22/18 12:50: Immature Granulocyte % (Auto) 0.3, White Blood Count 11.8H, Red Blood Count 4.77, Hemoglobin 13.2, Hematocrit 40.3, Mean Corpuscular Volume 84.5, Mean Corpuscular Hemoglobin 27.7, Mean Corpuscular Hemoglobin Concent 32.8, Red Cell Distribution Width 14.3, Platelet Count 324, Neutrophils (%) (Auto) 63.4, Lymphocytes (%) (Auto) 27.0, Monocytes (%) (Auto) 6.0H, Eosinophils (%) (Auto) 2.8, Basophils (%) (Auto) 0.5, Neutrophils # (Auto) 7.5, Lymphocytes # (Auto) 3.2, Monocytes # (Auto) 0.7, Eosinophils # (Auto) 0.3, Basophils # (Auto) 0.1, Nucleated Red Blood Cells % (auto) 0.0, Erythrocyte Sedimentation Rate 38H, Anion Gap 6L, Glomerular Filtration Rate > 60.0, Calcium Level 6.4L, Aspartate Amino Transf (AST/SGOT) 21, Alanine Aminotransferase (ALT/SGPT) 23, Alkaline Phosphatase 83, Total Bilirubin 0.3, Direct Bilirubin < 0.1, C-Reactive Protein, Quantitative 1.87H, Total Protein 7.9, Albumin 3.8, Albumin/Globulin Ratio 0.93L CBC/BMP Laboratory Tests 10/22/18 12:50 Red Blood Count 4.77, Mean Corpuscular Volume 84.5, Mean Corpuscular Hemoglobin 27.7, Mean Corpuscular Hemoglobin Concent 32.8, Red Cell Distribution Width 14.3, Neutrophils (%) (Auto) 63.4, Lymphocytes (%) (Auto) 27.0, Monocytes (%) (Auto) 6.0 H, Eosinophils (%) (Auto) 2.8, Basophils (%) (Auto) 0.5, Neutrophils # (Auto) 7.5, Lymphocytes # (Auto) 3.2, Monocytes # (Auto) 0.7, Eosinophils # (Auto) 0.3, Basophils # (Auto) 0.1 Microbiology Microbiology 10/22/18 Blood Culture, Received Pending 10/22/18 Blood Culture, Received Pending 10/22/18 Gram Stain, Received Pending 10/22/18 Wound Culture, Received Pending Allergies Coded Allergies: No Known Allergies (Unverified , 06/16/18) Home Medications Scheduled Calcium/Vitamin D (Calcium 500-Vit D3 200 Tablet) 1 Each Tablet, 1,000 MG PO BID, #60 LIAM HAIDER MD Oct 22, 2018 17:35
[2018-10-22] MEDS ORDERED: ROCA0.5C PO (17:39)
--- NOTE | 2018-10-22 18:24 | ED PDOC ---
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 As pt admitted to [facility] she injected in her neck several days ago CPS to be called. She is a single mom to a 4 month old. Child is currently being watched by a neighbor. She had no one willing to to assist with her infant. Permisssion from Flavia Hebert and Dr Mosley, [facility], to admit pt w 4 mo old child. Pt decided to leave AMA. She retracted her statement and told RN and KAE that she in fact has not injected for a long time. As pt is leaving AMA I have concerns for potential well being of 4 month old child. I ahve asked Brie to speak to CPS and my strong recommendation would be to do a welfare check at home to assess home and 4 month old. Pt is leaving AMA. Multiple colleagues have attempted to have her stay explaining she now may have baby with her. She still is leaving AMA. Pt personally told Kendrick Cintron that she would leave and come back in morning - 6 am for admission. Lorena Callejas MD Oct 22, 2018 18:24
[2018-10-22 18:33] LABS: AMPHETAMINES LEVEL URINE NEGATIVE (NEGATIVE); BARBITURATES URINE NEGATIVE (NEGATIVE); BENZODIAZEPINES URINE NEGATIVE (NEGATIVE); CANNABINOIDS URINE POSITIVE (NEGATIVE); COCAINE METABOLITE URINE NEGATIVE (NEGATIVE); METHADONE URINE NEGATIVE (NEGATIVE); OPIATES URINE POSITIVE (NEGATIVE); PHENCYCLIDINE URINE NEGATIVE (NEGATIVE)
[2018-10-22] MEDS ORDERED: DOXY-350 PO (18:40)
--- NOTE | 2018-10-26 13:16 | ER ---
DATE OF CONSULTATION: 10/22/2018 Ofelia Roberts was seen in the emergency department with a history of swelling in the left side of her neck. The patient had tried to inject drugs into the vein in her neck. She felt swelling and pain. Examination at the time showed that there was an elevation just anterior to sternocleidomastoid muscle on the left side in the mid portion of the neck. It was red overlying and fluctuant. CT scan showed an abscess beneath the skin on the left side of the neck. I infiltrated the area with lidocaine with epinephrine. I used a needle to localize the abscess. I then made an incision in skin and subcutaneous tissues. I opened the abscess and put in 1/4 inch [place] drain and drained a large amount of fluid from the neck. The patient was advised for admission, intravenous (IV) antibiotic therapy and the patient refused. DIAGNOSIS: Abscess left side of the neck. OPERATIVE PROCEDURE: Incision, drainage abscess left side of neck. Edited: salty 11/20/2018 1029 MTDD
== END 2018-10-22 18:00 | disposition left against medical advice (07) ==
LOC: M ED 11:55
DX: L02.11 Cutaneous abscess of neck (principal); F11.10 Opioid abuse, uncomplicated; B18.2 Chronic viral hepatitis C; F17.210 Nicotine dependence, cigarettes, uncomplicated
CPT/HCPCS: 10061; 36415; 70491; 80048; 80076; 80307; 85025; 85652; 86140; 87040; 87070; 87077; 87186; 87205; 96374; 96375; 99284; J0712; J1885; Q9967

== ENCOUNTER 2018-10-24 18:33 | Emergency (ER) | payer OTHER ==
[~2018-10-24] VITALS: Ht 167.6 cm; Wt 59.1 kg
[~2018-10-24 18:33] MED LIST changes: +DOXY-350 PO; +ROCA0.5C PO
[2018-10-24 18:34] VITALS: BP 112/69
--- NOTE | 2018-10-26 13:16 | ER ---
DATE OF CONSULTATION: 10/24/2018 Ofelia Roberts was seen in the emergency department with a history of swelling in the left side of her neck. The patient had tried to inject drugs into the vein in her neck. She felt swelling and pain. Examination at the time showed that there was an elevation just anterior to sternocleidomastoid muscle on the left side in the mid portion of the neck. It was red overlying and fluctuant. CT scan showed an abscess beneath the skin on the left side of the neck. I infiltrated the area with lidocaine with epinephrine. I used a needle to localize the abscess. I then made an incision in skin and subcutaneous tissues. I opened the abscess and put in 1/4 inch [place] drain and drained a large amount of fluid from the neck. The patient was advised for admission, intravenous (IV) antibiotic therapy and the patient refused. DIAGNOSIS: Abscess left side of the neck. OPERATIVE PROCEDURE: Incision, drainage abscess left side of neck.
== END 2018-10-24 20:49 | disposition home or self-care (01) ==
LOC: M ED 18:33
DX: L02.11 Cutaneous abscess of neck (principal); B18.2 Chronic viral hepatitis C; F17.210 Nicotine dependence, cigarettes, uncomplicated; Z86.59 Personal history of other mental and behavioral disorders

== ENCOUNTER → 2018-11-08 | Outpatient (CLI) | payer MEDICAID | LOC: M OUTALCOH 09:07 | PROVIDERS: ATTEND Psychiatry & Neurology Psychiatry | DX: F12.10 Cannabis abuse, uncomplicated (principal); F11.10 Opioid abuse, uncomplicated ==

== ENCOUNTER → 2018-11-10 | Outpatient (REF) | payer OTHER ==
[2018-11-10 20:06] LABS: ALBUMIN 4.3 GM/DL (3.2-5.2); BLOOD UREA NITROGEN 19 MG/DL (7-18); CALCIUM LEVEL 7.1 MG/DL (8.5-10.1); CARBON DIOXIDE LEVEL 29 MEQ/L (21-32); CHLORIDE LEVEL 101 MEQ/L (98-107); GLOMERULAR FILTRATION RATE > 60.0 (>60); GLUCOSE, FASTING 79 MG/DL (70-100); PHOSPHORUS LEVEL 6.6 MG/DL (2.5-4.9); POTASSIUM SERUM 3.9 MEQ/L (3.5-5.1); SODIUM LEVEL 139 MEQ/L (136-145)
== END ==
LOC: M SFHCADAM 15:48
PROVIDERS: ATTEND Physician Assistant Medical
DX: E83.51 Hypocalcemia (principal); E83.42 Hypomagnesemia

== ENCOUNTER 2018-11-15 14:55 | Outpatient (RCR) | payer MEDICAID | END 2018-11-20 | LOC: M OUTALCOH 14:55 | PROVIDERS: ATTEND Psychiatry & Neurology Psychiatry | DX: F11.10 Opioid abuse, uncomplicated (principal); F12.10 Cannabis abuse, uncomplicated ==

== ENCOUNTER → 2018-11-23 | Outpatient (CLI) | payer OTHER ==
--- NOTE | 2018-11-23 14:51 | REP ---
MRI brain without contrast: History: Migraine . Comparison study: Comparison head CT study July 04, 2018. Technique: Axial and sagittal imaging planes are utilized for T1 and T2-weighted scans. Sequences include spin-echo, fast spin echo, FLAIR, and diffusion weighted sequences. MRI findings: No bony calvarial lesion is seen. Craniocervical junction and upper cervical cord are normal in appearance. The cerebellar tonsils are not low lying by MR criteria. There is no MR evidence of significant paranasal sinus disease. No intraorbital abnormality is seen. The lateral, third, and fourth ventricles are normal in size and position. [place]-white differentiation pattern is intact above and below the tentorium. There is no evidence of intracranial hemorrhage. No mass, infarction, extra-axial fluid collection or midline shift is seen. No abnormal white matter lesion is seen. Impression: Negative noncontrast brain MRI study. Electronically Signed by Mane Pacheco MD 11/23/2018 02:43 P
== END ==
LOC: M RAD 13:36
PROVIDERS: ATTEND Physician Assistant Medical
DX: G43.109 Migraine with aura, not intractable, without status migrainosus (principal)

== ENCOUNTER 2018-12-01 13:00 | Outpatient (RCR) | payer MEDICAID ==
[2018-12-12] MEDS ORDERED: TOPI25TA10 (09:30)
== END 2018-12-21 ==
LOC: M OUTALCOH 13:00
PROVIDERS: ATTEND Psychiatry & Neurology Psychiatry
DX: F11.10 Opioid abuse, uncomplicated (principal); F12.10 Cannabis abuse, uncomplicated

== ENCOUNTER 2018-12-12 09:23 | Emergency (ER) | payer MEDICAID, OTHER ==
[~2018-12-12] VITALS: Ht 170.2 cm; Wt 59.6 kg
[2018-12-12] MEDS ORDERED: TOPI25TA10 (09:30)
[2018-12-12 10:15] LABS: BASO # 0.1 10^3/uL (0.0-0.2); BASO % 0.6 % (0.0-1.0); EOS # 0.2 10^3/uL (0.0-0.5); HEMOGLOBIN 13.2 g/dl (12.0-15.5); LYMPH # 1.9 10^3/uL (1.5-5.0); LYMPH % 23.9 % (24.0-44.0); MEAN CORPUSCULAR HEMOGLOBIN 27.9 pg (27.0-33.0); MEAN CORPUSCULAR VOLUME 84.6 fl (80.0-96.0); MONO # 0.5 10^3/uL (0.0-0.8); MONO % 6.3 % (0.0-5.0); NEUTROPHILS # 5.3 10^3/uL (1.5-8.5); PLATELET COUNT, AUTOMATED 265 10^3/uL (150-450); RED BLOOD COUNT 4.73 10^6/uL (4.00-5.40); WHITE BLOOD COUNT 8.1 10^3/uL (4.0-10.0)
[2018-12-12 10:41] LABS: BLOOD UREA NITROGEN 16 MG/DL (7-18); CALCIUM LEVEL 6.2 MG/DL (8.5-10.1); CARBON DIOXIDE LEVEL 29 MEQ/L (21-32); CHLORIDE LEVEL 103 MEQ/L (98-107); CREATININE FOR GFR 0.88 MG/DL (0.55-1.30); GLOMERULAR FILTRATION RATE > 60.0 (>60); GLUCOSE, FASTING 104 MG/DL (70-100); MAGNESIUM LEVEL 1.7 MG/DL (1.8-2.4); POTASSIUM SERUM 4.4 MEQ/L (3.5-5.1); SODIUM LEVEL 140 MEQ/L (136-145)
[2018-12-12] MEDS ORDERED: CALCIUM GLUCONATE 1,000 MG in D5W MINI-BAG PLUS 100 ML IV ONE (11:15)
[2018-12-12 12:49] VITALS: BP 109/71
== END 2018-12-12 13:15 | disposition home or self-care (01) ==
LOC: M ED 09:23
DX: E83.51 Hypocalcemia (principal); E03.9 Hypothyroidism, unspecified; G40.909 Epilepsy, unspecified, not intractable, without status epilepticus; E20.0 Idiopathic hypoparathyroidism; B19.20 Unspecified viral hepatitis C without hepatic coma; F41.9 Anxiety disorder, unspecified; F17.210 Nicotine dependence, cigarettes, uncomplicated; Z79.899 Other long term (current) drug therapy
CPT/HCPCS: 80048; 83735; 85025; 96365; 96366; 99284; J0610

== ENCOUNTER → 2018-12-19 | Outpatient (REF) | payer OTHER ==
[~2018-12-19] MED LIST changes: +TOPI25TA10
[2018-12-19 16:05] LABS: ALBUMIN 3.8 GM/DL (3.2-5.2); ALT/SGPT 43 U/L (12-78); BILIRUBIN,TOTAL 0.3 MG/DL (0.2-1.0); BLOOD UREA NITROGEN 18 MG/DL (7-18); CALCIUM LEVEL 7.2 MG/DL (8.5-10.1); CARBON DIOXIDE LEVEL 30 MEQ/L (21-32); CHLORIDE LEVEL 101 MEQ/L (98-107); GLOMERULAR FILTRATION RATE > 60.0 (>60); GLUCOSE, FASTING 90 MG/DL (70-100); MAGNESIUM LEVEL 1.8 MG/DL (1.8-2.4); POTASSIUM SERUM 4.2 MEQ/L (3.5-5.1); SODIUM LEVEL 140 MEQ/L (136-145); TOTAL PROTEIN 7.6 GM/DL (6.4-8.2)
== END ==
LOC: M SFHCADAM 11:50
PROVIDERS: ATTEND Physician Assistant Medical
DX: R79.89 Other specified abnormal findings of blood chemistry (principal); E83.42 Hypomagnesemia

== ENCOUNTER 2019-01-10 19:22 | Emergency (ER) | payer OTHER ==
[~2019-01-10] VITALS: Ht 167.6 cm; Wt 59.1 kg
[2019-01-10 19:22] VITALS: BP 82/55
== END 2019-01-10 20:42 | disposition left against medical advice (07) ==
LOC: M ED 19:22
DX: Z53.21 Procedure and treatment not carried out due to patient leaving prior to being seen by health care provider (principal)

== ENCOUNTER → 2019-01-16 | Outpatient (CLI) | payer MEDICAID | LOC: M OUTALCOH 08:05 | PROVIDERS: ATTEND Psychiatry & Neurology Psychiatry | DX: F11.20 Opioid dependence, uncomplicated (principal) ==

== ENCOUNTER → 2019-05-07 | Outpatient (CLI) | payer MEDICAID | LOC: M OUTALCOH 08:25 | PROVIDERS: ATTEND Psychiatry & Neurology Addiction Medicine | DX: F11.20 Opioid dependence, uncomplicated (principal); F12.20 Cannabis dependence, uncomplicated; F17.200 Nicotine dependence, unspecified, uncomplicated ==

== ENCOUNTER 2019-05-14 08:45 | Outpatient (RCR) | payer MEDICAID | END 2019-05-22 | LOC: M OUTALCOH 08:45 | PROVIDERS: ATTEND Psychiatry & Neurology Addiction Medicine | DX: F12.20 Cannabis dependence, uncomplicated (principal); F11.20 Opioid dependence, uncomplicated; F17.200 Nicotine dependence, unspecified, uncomplicated ==

== ENCOUNTER → 2020-07-06 | Outpatient (CLI) | payer OTHER ==
[2020-07-06 11:02] LABS: HEMATOCRIT 42.7 % (36.0-47.0); HEMOGLOBIN 13.9 g/dl (12.0-15.5); MEAN CORPUSCULAR HEMOGLOBIN 28.3 pg (27.0-33.0); MEAN CORPUSCULAR HGB CONC 32.6 g/dl (32.0-36.5); PLATELET COUNT, AUTOMATED 327 10^3/uL (150-450); RED BLOOD COUNT 4.91 10^6/uL (4.00-5.40); WHITE BLOOD COUNT 7.9 10^3/uL (4.0-10.0)
[2020-07-06 11:25] LABS: HCG, SERUM QUALITATIVE NEGATIVE (NEGATIVE)
[2020-07-06 11:27] LABS: ALBUMIN 3.9 GM/DL (3.2-5.2); ALT/SGPT 50 U/L (12-78); BILIRUBIN,TOTAL 0.4 MG/DL (0.2-1.0); BLOOD UREA NITROGEN 17 MG/DL (7-18); CARBON DIOXIDE LEVEL 29 MEQ/L (21-32); CHLORIDE LEVEL 102 MEQ/L (98-107); CREATININE FOR GFR 0.79 MG/DL (0.55-1.30); GLOMERULAR FILTRATION RATE > 60.0 (>60); GLUCOSE, FASTING 74 MG/DL (70-100); POTASSIUM SERUM 4.1 MEQ/L (3.5-5.1); SODIUM LEVEL 138 MEQ/L (136-145); TOTAL PROTEIN 8.1 GM/DL (6.4-8.2)
[2020-07-06 11:40] LABS: CALCIUM LEVEL 5.6 MG/DL (8.5-10.1)
--- NOTE | 2020-07-06 12:02 | ECGEPIP ---
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
[2020-07-06 12:52] LABS: CHLAMYDIA DNA AMPLIFICATION NEGATIVE (NEGATIVE); GC DNA AMPLIFICATION NEGATIVE (NEGATIVE)
[2020-07-07 10:43] LABS: HEPATITIS B SURFACE ANTIGEN NEGATIVE (NEGATIVE)
[2020-07-07 11:01] LABS: HIV 1&2 SCREEN CENTAUR NEGATIVE (NEGATIVE)
[2020-07-07 11:09] LABS: HEPATITIS C VIRUS ABY INDEX > 11.0 INDEX (<0.8)
== END ==
LOC: M LAB 10:15
PROVIDERS: ATTEND Family Medicine
DX: F11.20 Opioid dependence, uncomplicated (principal)

== ENCOUNTER → 2022-03-15 | Outpatient (REF) | payer OTHER ==
[~2022-03-15] MED LIST changes: -DOXY-350 PO; +DOXY-444 PO
== END ==
LOC: M LAB REF 20:54
PROVIDERS: ATTEND Physician Assistant Medical
DX: J02.9 Acute pharyngitis, unspecified (principal)

== ENCOUNTER 2022-05-06 21:26 | Emergency (ER) | payer OTHER ==
[~2022-05-06] VITALS: Ht 170.2 cm; Wt 66.0 kg
[2022-05-06] MEDS ORDERED: NS 1,000 ML IV SCH (21:35)
[2022-05-06 21:39] VITALS: BP 136/69
[2022-05-06 22:10] LABS: HEMATOCRIT 42.6 % (36.0-47.0); HEMOGLOBIN 14.5 g/dl (12.0-15.5); MEAN CORPUSCULAR HEMOGLOBIN 28.4 pg (27.0-33.0); MEAN CORPUSCULAR VOLUME 83.5 fl (80.0-96.0); PLATELET COUNT, AUTOMATED 340 10^3/uL (150-450); WHITE BLOOD COUNT 10.2 10^3/uL (4.0-10.0)
[2022-05-06 22:26] LABS: ETHYL ALCOHOL (ETHANOL) 0.005 % (0.000-0.010)
[2022-05-06 22:30] LABS: BLOOD UREA NITROGEN 10 MG/DL (9-23); CARBON DIOXIDE LEVEL 28 MMOL/L (20-31); CHLORIDE LEVEL 98 MMOL/L (98-107); CREATININE FOR GFR 0.65 MG/DL (0.55-1.30); GLOMERULAR FILTRATION RATE > 60.0 (>60); GLUCOSE, FASTING 130 MG/DL (60-100); POTASSIUM SERUM 4.1 MMOL/L (3.5-5.1); SODIUM LEVEL 137 MMOL/L (136-145)
[2022-05-06 22:57] LABS: CALCIUM LEVEL 5.8 MG/DL (8.5-10.1)
== END 2022-05-06 22:19 | disposition left against medical advice (07) ==
LOC: M ED 21:26 → EDBD 21:26 → M ED 22:19
DX: G40.89 Other seizures (principal); E03.9 Hypothyroidism, unspecified; Z79.83 Long term (current) use of bisphosphonates; Z79.811 Long term (current) use of aromatase inhibitors; Z53.9 Procedure and treatment not carried out, unspecified reason

== ENCOUNTER 2023-04-28 11:57 | Emergency (ER) | payer OTHER ==
[~2023-04-28] VITALS: Ht 170.2 cm; Wt 63.4 kg
[2023-04-28] MEDS: LIDOCAINE 2% W/EPINEPHRINE 20ML VIAL **PRES FREE INJ ONE (14:55)
[2023-04-28] MEDS ORDERED: DOXY100C82 PO (15:27)
[2023-04-28 15:45] VITALS: BP 100/57; TEMP 98.2; O2SAT 92
== END 2023-04-28 15:46 | disposition home or self-care (01) ==
LOC: M ED 11:57
DX: L02.414 Cutaneous abscess of left upper limb (principal); B18.2 Chronic viral hepatitis C; F41.1 Generalized anxiety disorder; F11.20 Opioid dependence, uncomplicated; Z79.899 Other long term (current) drug therapy

== ENCOUNTER 2023-08-08 16:52 | Emergency (ER) | payer OTHER ==
[~2023-08-08] VITALS: Ht 172.7 cm; Wt 59.5 kg
[~2023-08-08 16:52] MED LIST changes: +DOXY-440 PO; -DOXY-444 PO; +DOXY100C82 PO
[2023-08-08 19:03] LABS: BASO % 0.2 % (0.0-1.0); EOS % 0.1 % (0.0-3.0); HEMATOCRIT 41.4 % (36.0-47.0); HEMOGLOBIN 13.7 g/dl (12.0-15.5); LYMPH # 3.5 10^3/uL (1.5-5.0); LYMPH % 35.9 % (24.0-44.0); MEAN CORPUSCULAR HEMOGLOBIN 27.7 pg (27.0-33.0); MEAN CORPUSCULAR HGB CONC 33.1 g/dl (32.0-36.5); MEAN CORPUSCULAR VOLUME 83.8 fl (80.0-96.0); MONO # 0.9 10^3/uL (0.0-0.8); NEUTROPHILS # 5.3 10^3/uL (1.5-8.5); NEUTROPHILS % 54.7 % (36.0-66.0); PLATELET COUNT, AUTOMATED 286 10^3/uL (150-450); RED BLOOD COUNT 4.94 10^6/uL (4.00-5.40); WHITE BLOOD COUNT 9.7 10^3/uL (4.0-10.0)
[2023-08-08 19:18] LABS: BLOOD UREA NITROGEN 15 MG/DL (9-23); CALCIUM LEVEL 7.1 MG/DL (8.5-10.1); CARBON DIOXIDE LEVEL 34 MMOL/L (20-31); CHLORIDE LEVEL 100 MMOL/L (98-107); CREATININE FOR GFR 0.75 MG/DL (0.55-1.30); GLOMERULAR FILTRATION RATE > 60.0 (>60); GLUCOSE, FASTING 92 MG/DL (60-100); MAGNESIUM LEVEL 1.6 MG/DL (1.8-2.4); POTASSIUM SERUM 3.9 MMOL/L (3.5-5.1); SODIUM LEVEL 139 MMOL/L (136-145)
[2023-08-08] MEDS: CALCIUM GLUCONATE 1,000 MG in D5W MINI-BAG PLUS 100 ML IV ONE (19:39)
[2023-08-08] MEDS: MAG SULF 1GM/100ML (MAG RUN) 1 GM in IV 1 EA IV ONE (20:48)
[2023-08-08 21:30] VITALS: BP 112/84; TEMP 98.8; O2SAT 97
[2023-08-08 21:50] LABS: PTH INTACT < 6.3 PG/ML (18.5-88.0)
== END 2023-08-08 21:38 | disposition home or self-care (01) ==
LOC: M ED 16:52
DX: E20.9 Hypoparathyroidism, unspecified (principal); E03.9 Hypothyroidism, unspecified; B19.20 Unspecified viral hepatitis C without hepatic coma; F17.200 Nicotine dependence, unspecified, uncomplicated; Z79.899 Other long term (current) drug therapy
CPT/HCPCS: 80048; 83735; 83970; 85025; 96365; 96366; 99284; J0612; J3475